=== PATIENT | female | born 1950 | race Caucasian/White ===

== ENCOUNTER 2022-05-07 18:47 | Inpatient (IN) | payer OTHER, SELFPAY ==
[2022-05-07 19:20] VITALS: BP 130/81; PULSE 100; RESP 18; TEMP 36.3; O2SAT 95
[2022-05-07] MEDS: Divalproex Sodium 250 MG TABLET.DR PO (19:40)
[2022-05-07] MEDS: OLANZapine 2.5 MG TABLET 7.5 MG PO (19:40)
[2022-05-07 19:41] LABS: Glucose, Whole Blood 262 mg/dL (60-115)
[2022-05-07 20:20] VITALS: BMI 36.3
[2022-05-07] MEDS: Heparin Sodium,Porcine 5,000 UNIT/ML VIAL 5000 UNIT SUBCUT (20:33)
--- NOTE | 2022-05-07 20:35 | PC.NURSE ---
PT POC 262, PT refusing insulin, notified.
[2022-05-07 21:54] LABS: Valproate 85.5 mcg/mL (50.0-100.0)
--- NOTE | 2022-05-07 22:34 | ECG_ITS ---
Test Reason : New Admit Blood Pressure : / mmHG Vent. Rate : 091 BPM Atrial Rate : 091 BPM P-R Int : 204 ms QRS Dur : 080 ms QT Int : 368 ms P-R-T Axes : 041 -24 040 degrees QTc Int : 452 ms Normal sinus rhythm Septal infarct (cited on or before 07-MAY-2022) Inferior infarct (cited on or before 07-MAY-2022) Abnormal ECG When compared with ECG of 07-MAY-2022 22:34, Questionable change in initial forces of Septal leads Referred By: Prateek Stanton Electronically Signed By:HILARIO PALMER MD
--- NOTE | 2022-05-07 22:56 | PC.NURSE ---
EKG results sent to MD Alex Rivas.
--- NOTE | 2022-05-07 23:28 | PC.ADMIT ---
PT is 71 year old female admitted on CV from [facility]. PT has hx of bipolar disorder presenting via EMS after she was noticed naked in her driveway throwing things, disorganized and mumbling incoherent speech. PT was evaluated by neurology at [facility] and symptoms were felt to be psychiatric in nature. PT has past medical Hx of diabetes mellitus, UTI, and HTN. PT is A+Ox4, calm and cooperative during admission interview. PT placed on 5 minute safety checks and is on a bed alarm. PT refused insulin at HS POC was 262, MD Alex Rivas notified. PT also refused Lyrica at bedtime, MD Alex Rivas notified. EKG done and results reported to . PT is currenty resting in bed with eyes closed. Tox screen was negative.
[2022-05-08 07:50] LABS: Glucose, Whole Blood 262 mg/dL (60-115)
[2022-05-08] MEDS: Insulin Lispro 100 UNIT/ML 3 ML VIAL SUBCUT ×4 (08:11→20:31)
[2022-05-08] MEDS: Insulin Glargine,Hum.rec.anlog 100 UNIT/ML 10 ML VIAL 60 UNIT SUBCUT (08:15)
[2022-05-08 08:21] VITALS: BP 119/82; PULSE 114; RESP 16; TEMP 36.2; O2SAT 96
[2022-05-08 08:40] LABS: Cholesterol 265 mg/dL; HDL Cholesterol 32 mg/dL; Magnesium 1.7 mg/dL (1.6-2.6); Triglycerides 560 mg/dL
[2022-05-08] MEDS: Divalproex Sodium 250 MG TABLET.DR PO (08:45)
[2022-05-08] MEDS: OLANZapine 2.5 MG TABLET PO ×2 (08:45→14:20)
[2022-05-08 08:46] LABS: Estimated Average Glucose 223 mg/dL; Hemoglobin A1c % 9.4 %
--- NOTE | 2022-05-08 09:00 | ECG_ITS ---
Test Reason : New Admit Blood Pressure : / mmHG Vent. Rate : 090 BPM Atrial Rate : 090 BPM P-R Int : 176 ms QRS Dur : 066 ms QT Int : 362 ms P-R-T Axes : 037 -21 040 degrees QTc Int : 442 ms Normal sinus rhythm Septal infarct , age undetermined Inferior infarct , age undetermined Abnormal ECG No previous ECGs available Referred By: Olga Trammell Electronically Signed By:HILARIO PALMER MD
[2022-05-08 09:08] LABS: Folate 6.4 ng/mL (> or = 4.0); Free T4 (Free Thyroxine) 0.84 ng/dL (0.71-1.85); Thyroid Stimulating Hormone 4.79 uIU/mL (0.32-4.0); Vitamin B12 789 pg/mL (200-900)
--- NOTE | 2022-05-08 10:30 | HO.PSYADMNOT ---
HPI Date of Service: 05/08/22 Chief Complaint: Bipolar D/O Current Episode Manic Sources of Information: patient interviewed, chart reviewed and crisis/core team assessment reviewed HPI Subjective Notes: Conditional Voluntary Healthcare Proxy: No Guardianship: No Medical Problems Affecting Mental Status: No Narrative: 71 yo female, history of bipolar disorder, HTN, and diabetes. Pt was found in her driveway throwing items. She was said to be disorganized, mumbling and incoherent, possibly manic. She was cleared neurologically prior to transfer. Blood glucose levels have a history of instability. She has infection L tooth which was fully treated with Augmentin, a UTI treated with Ceftriaxone, MANJIT which is resoloved with question of Stage II or III, resolved hyponatremia and urinary retention. 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 Diagnostics Vital Signs (24Hr): Vital Signs - 24 hr 05/07/22 19:20 05/08/22 08:21 Temperature 97.3 F 97.2 F Pulse Rate 100 114 H Respiratory Rate 18 16 Blood Pressure 130/81 119/82 Pulse Oximetry 95 96 Oxygen Delivery Method Room Air Room Air BMI result Body Mass Index 36.3 Labs Labs: Laboratory Results - last 48 hr 05/07/22 05/07/22 05/08/22 19:37 21:17 07:45 POC Glucose 262 H 262 H Estimat Average Glucose Hemoglobin A1c % Magnesium Triglycerides Cholesterol LDL Cholesterol, Calc HDL Cholesterol Vitamin B12 Folate TSH Free T4 Valproic Acid 85.5 05/08/22 05/08/22 08:02 08:02 POC Glucose Estimat Average Glucose 223 Hemoglobin A1c % 9.4 Magnesium 1.7 Triglycerides 560 Cholesterol 265 LDL Cholesterol, Calc TNP HDL Cholesterol 32 Vitamin B12 789 Folate 6.4 TSH 4.79 H Free T4 0.84 Valproic Acid Meds/Allergies Allergies Allergies Allergy/AdvReac Type Severity Reaction Status Date / Time No Known Allergies Allergy Verified 05/07/22 19:03 Mental Status Exam Mental Status Exam Patient Appearance: Fatigued Patient Orientation: Person and Place (hospital) Level of Consciousness: Alert Patient Behavior: Appropriate, Talkative, Cooperative and Good Eye Contact Mood Description: Calm Affect Description: Flat Patient Cognition Impaired: Yes Ability to Follow Directions: Fair Speech Pattern: Spontaneous Speech Memory Description: Remote Impaired and Episodic Impaired Hallucinations: None Delusions: Not Present Thought Process: Distracted Thought Content: positive for [place] Judgement: Poor Assessment & Plan Assessment & Plan (1) Bipolar disorder: Status: Acute Code(s): F31.9 - Bipolar disorder, unspecified Plan 71 yo female, history of bipolar disorder, HTN, DM found in her driveway disorganized, throwing items, incoherent and with labile blood sugar levels, a dental infection, UTI sx, MANJIT, urinary retention and hyponatremia. Pt presents in transfer for ongoing treatment after medically treated and cleared. Rule out possible luly AGRICULTURE INSPECTOR vs delirium due to multiple medical factors Plan: Continue Valproate and Olanzapine Collateral contact as needed Hold Heparin until seen by hospitalist team. Patient educated on: other Informed Consent: further education needed Reason for continued inpatient stay Substantial Risk for: med/psych decompensation Statement Statement: I have reviewed the history and physical and performed a pertinent examination on my patient. No changes have occurred unless specified. If the History and Physical was not performed prior to admission, the Hospitalist's service will be consulted for completing the admission physical. Time Spent With Patient Time: Total time managing care of this patient today ____ minutes.
[2022-05-08 11:25] LABS: Glucose, Whole Blood 315 mg/dL (60-115)
--- NOTE | 2022-05-08 15:30 | HO.PM.IMCN ---
History of Present Illness Data of Consult Service Date: 05/08/22 Primary Care Provider: Jerome Sierra MD HPI Reason for consult: Admission H&P Pt is a 71-year-old female with a PMH significant for?bipolar disorder, HTN, CKD, and diabetes who is admitted to [facility] after being found naked in her driveway throwing items. Patient was transferred from [facility] where she was treated for a tooth infection with Augmentin, UTI with ceftriaxone, MANJIT, hyponatremia, and urinary retention. Patient's glucose was apparently difficult to control. Medical consult for patient history and physical. Pt seen and evaluated in her room. Patient has no acute complaints at this time. Denies chest pain/pressure, palpitations. No SOB. Denies fever, chills, nausea, vomiting, diarrhea, abdominal pain. Labs reviewed, significant for a glucose as high as 315. Review of Systems Review of Systems: Patient has no acute complaints at this time. Yes all other systems are reviewed and are negative [facility] Medical History (Updated 05/08/22 @ 16:31 by AUDREY Munoz) Bipolar disorder Social History Household Members: None Housing: Condominium Do you presently have visiting nurse or other home services: No Unable to assess alcohol history related to: Unknown Patient Tobacco Use Status: Former Tobacco user Smoked in Last 30 Days: No e-Cigarette/Vaping Use: Never Used Patient Interested in Nicotine Replacement: No Use of substances other than those prescribed or required for medical reasons: No Last Used Substance: Unknown Currently Displaying Signs/Symptoms of Drug Intoxication Withdrawal: No Any prior treatment program specific to substance use: No Have you been hit, kicked, punched, or otherwise hurt by someone within the past year? If so, by whom?: No Do you feel safe in your current relationship?: No Current Relationship Is there a partner from a previous relationship who is making you feel unsafe now?: No Are you made to feel afraid or neglected: No Spiritual Healthcare Practices: NA Mandaeism Healthcare Practices: NA Cultural Healthcare Practices: NA Advance Directives: No Advance Directives Information Provided: No Do you have thoughts of harming others: None Do you have a plan to hurt others: No Plan Recently lost weight without trying: No Eating poorly because of decreased appetite: No Nutrition Risks: No Nutritional Risk Patient : No : No Poor oral hygiene: No Meds Allergies Allergy/AdvReac Type Severity Reaction Status Date / Time No Known Allergies Allergy Verified 05/07/22 19:03 Active Medications: Current Medications Acetaminophen (Acetaminophen 325 Mg Tablet) 650 mg PO Q6H PRN PRN Reason: Headache/Pain Mild Scale (1-3) Al Hydroxide/Mg Hydroxide (Magnesium Hydrox/Alum Hydrox 30 Ml Oral.Susp) 30 ml PO Q6H PRN PRN Reason: Heartburn/Nausea Divalproex Sodium (Divalproex Sodium 250 Mg Tablet.) 250 mg PO DAILY [facility] Last Admin: 05/08/22 08:45 Dose: 250 mg Divalproex Sodium (Divalproex Sodium 500 Mg Tablet.) 500 mg PO 1700,2100 [facility] Last Admin: 05/07/22 20:08 Dose: Not Given Glucose (Glucose Gel 15 Gm Gel..Gram.) 15 gm PO Q15M PRN; Protocol PRN Reason: per Hypoglycemia Standing Ord. Heparin Sodium (Porcine) (Heparin Sodium,Porcine 5,000 Unit/Ml Vial) 5,000 unit SUBCUT Q8H [facility] Last Admin: 05/08/22 10:49 Dose: Not Given Hydroxyzine HCl (Hydroxyzine Hcl 25 Mg Tablet) 25 mg PO Q6H PRN PRN Reason: Anxiety Dextrose (D10) 250 mls @ 750 mls/hr IV Q15M PRN; Protocol PRN Reason: per Hypoglycemia Standing Ord. Insulin Glargine (Insulin Glargine,Hum.Rec.Anlog 100 Unit/Ml 10 Ml Vial) 60 unit SUBCUT DAILY [facility] Last Admin: 05/08/22 08:15 Dose: 60 unit Insulin Human Lispro (Insulin Lispro 100 Unit/Ml 3 Ml Vial) 0 unit SUBCUT TIDAC [facility]; Protocol Last Admin: 05/08/22 12:04 Dose: 8 unit Magnesium Hydroxide (Milk Of Magnesia 30 Ml Oral.Susp) 30 ml PO DAILY PRN PRN Reason: Constipation Melatonin (Melatonin 3 Mg Tablet) 3 mg PO BEDTIME PRN PRN Reason: Insomnia Olanzapine (Olanzapine 2.5 Mg Tablet) 7.5 mg PO BEDTIME [facility] Last Admin: 05/07/22 19:40 Dose: 7.5 mg Olanzapine (Olanzapine 2.5 Mg Tablet) 2.5 mg PO Q6H PRN PRN Reason: agitation Olanzapine (Olanzapine 2.5 Mg Tablet) 2.5 mg PO 0900,1500 [facility] Last Admin: 05/08/22 14:20 Dose: 2.5 mg Pregabalin (Pregabalin 75 Mg Capsule) 75 mg PO BEDTIME [facility] Last Admin: 05/07/22 21:33 Dose: Not Given Physical Exam Vital Signs and Narrative: Vital Signs: Last Vital Signs Temp 97.2 F 05/08/22 08:21 Pulse 114 H 05/08/22 08:21 Resp 16 05/08/22 08:21 BP 119/82 05/08/22 08:21 Pulse Ox 96 05/08/22 08:21 O2 Del Method Room Air 05/08/22 08:21 BMI result Body Mass Index 36.3 General: AOx3, no acute distress Resp: CTA bilaterally CVS: S1, S2, RRR GI: +BS, NT, no distention Skin: No rash Neuro: Cranial nerves II-XII grossly intact bilaterally. Motor grossly intact bilaterally Extremities: No edema Psych: Appropriate affect Results Labs Labs: Laboratory Results - last 24 hr 05/07/22 05/07/22 05/08/22 19:37 21:17 07:45 POC Glucose 262 H 262 H Estimat Average Glucose Hemoglobin A1c % Magnesium Triglycerides Cholesterol LDL Cholesterol, Calc HDL Cholesterol Vitamin B12 Folate TSH Free T4 Valproic Acid 85.5 05/08/22 05/08/22 05/08/22 08:02 08:02 11:19 POC Glucose 315 H Estimat Average Glucose 223 Hemoglobin A1c % 9.4 Magnesium 1.7 Triglycerides 560 Cholesterol 265 LDL Cholesterol, Calc TNP HDL Cholesterol 32 Vitamin B12 789 Folate 6.4 TSH 4.79 H Free T4 0.84 Valproic Acid Assessment and Plan (1) Routine history and physical examination of adult: Status: Acute Plan Pt is a 71-year-old female with a PMH significant for?bipolar disorder, HTN, CKD, and diabetes who is admitted to [facility] after being found naked in her driveway throwing items. Patient was transferred from [facility] where she was treated for a tooth infection with Augmentin, UTI with ceftriaxone, MANJIT, hyponatremia, and urinary retention. Patient's glucose was apparently difficult to control. Medical consult for patient history and physical. Patient has no acute complaints at this time. Bipolar disorder Plan as per Psychiatry CKD Seems stable at time of transfer from [facility] Creatinine 1.4 Encourage p.o. fluids Insulin-dependent diabetes Continue Lantus, sliding scale for glucose control HTN Continue home meds Thank you for allowing us to participate in the care of this patient. Sign of this time. Please let us know if there are any acute concerns or questions. Time Spent With Patient Time: Total time managing care of this patient today ____ minutes.
[2022-05-08] MEDS: Heparin Sodium,Porcine 5,000 UNIT/ML VIAL 5000 UNIT SUBCUT (16:26)
[2022-05-08] MEDS: Divalproex Sodium 500 MG TABLET.DR PO ×2 (16:27→20:36)
--- NOTE | 2022-05-08 16:30 | PC.NURSE ---
Pt. with good balance, steady gait, and good safety awareness. Bed alarm not needed.
[2022-05-08 18:00] VITALS: BP 109/64; PULSE 107; RESP 16; TEMP 35.8; O2SAT 95
[2022-05-08 20:06] LABS: Glucose, Whole Blood 331 mg/dL (60-115)
[2022-05-08 20:06] LABS: Glucose, Whole Blood 322 mg/dL (60-115)
[2022-05-08] MEDS: OLANZapine 2.5 MG TABLET 7.5 MG PO (20:31)
[2022-05-08] MEDS: Pregabalin 75 MG CAPSULE PO (20:31)
[2022-05-09 07:30] VITALS: BP 126/74; PULSE 107; RESP 15; TEMP 36.7; O2SAT 98
[2022-05-09 07:56] LABS: Glucose, Whole Blood 273 mg/dL (60-115)
[2022-05-09] MEDS: Divalproex Sodium 250 MG TABLET.DR PO (09:07)
[2022-05-09] MEDS: Insulin Glargine,Hum.rec.anlog 100 UNIT/ML 10 ML VIAL 60 UNIT SUBCUT (09:07)
[2022-05-09] MEDS: OLANZapine 2.5 MG TABLET PO ×2 (09:07→17:07)
[2022-05-09] MEDS: Insulin Lispro 100 UNIT/ML 3 ML VIAL SUBCUT ×4 (09:09→21:28)
[2022-05-09] MEDS: Heparin Sodium,Porcine 5,000 UNIT/ML VIAL 5000 UNIT SUBCUT ×2 (09:10→17:07)
--- NOTE | 2022-05-09 11:14 | P.PNPSI_ITS ---
Subjective Subjective Date of Service: 05/09/22 Reason For Visit: Bipolar D/O Current Episode Manic Interim History: POC change to QID. Cooperative, calm and interactive. Reports she finds that some napping during the day is more helpful to allowing her to fully participate in the activity. She comments that she finds it beautiful here and has met several wonderful people. Denies sx of concern or distress today. Medication Compliance: Yes Side effects from medications: No Attending Groups: Intermittent Review of Systems Acute medical concerns: No Medical Review of Systems: unchanged Mental Status Exam Mental Status Exam Patient Appearance: Fatigued Patient Orientation: Person and Place (hospital) Level of Consciousness: Alert Patient Behavior: Appropriate, Talkative, Cooperative and Good Eye Contact Mood Description: Calm Affect Description: Flat Patient Cognition Impaired: Yes Ability to Follow Directions: Fair Speech Pattern: Spontaneous Speech Memory Description: Remote Impaired and Episodic Impaired Hallucinations: None Delusions: Not Present Thought Process: Distracted Thought Content: positive for [place] Judgement: Poor Diagnostics Vital Signs (24Hr): Vital Signs - 24 hr 05/08/22 18:00 05/09/22 07:30 Temperature 96.4 F L 98.1 F Pulse Rate 107 H 107 H Respiratory Rate 16 15 Blood Pressure 109/64 126/74 Pulse Oximetry 95 98 Oxygen Delivery Method Room Air Room Air BMI result Body Mass Index 36.3 Labs Labs: Laboratory Results - last 48 hr 05/07/22 05/07/22 05/08/22 19:37 21:17 07:45 POC Glucose 262 H 262 H Estimat Average Glucose Hemoglobin A1c % Magnesium Triglycerides Cholesterol LDL Cholesterol, Calc HDL Cholesterol Vitamin B12 Folate TSH Free T4 Valproic Acid 85.5 05/08/22 05/08/22 05/08/22 08:02 08:02 11:19 POC Glucose 315 H Estimat Average Glucose 223 Hemoglobin A1c % 9.4 Magnesium 1.7 Triglycerides 560 Cholesterol 265 LDL Cholesterol, Calc TNP HDL Cholesterol 32 Vitamin B12 789 Folate 6.4 TSH 4.79 H Free T4 0.84 Valproic Acid 05/08/22 05/08/22 05/09/22 16:14 20:00 07:52 POC Glucose 322 H 331 H 273 H Estimat Average Glucose Hemoglobin A1c % Magnesium Triglycerides Cholesterol LDL Cholesterol, Calc HDL Cholesterol Vitamin B12 Folate TSH Free T4 Valproic Acid Medications Medications Current Medications Acetaminophen (Acetaminophen 325 Mg Tablet) 650 mg PO Q6H PRN PRN Reason: Headache/Pain Mild Scale (1-3) Al Hydroxide/Mg Hydroxide (Magnesium Hydrox/Alum Hydrox 30 Ml Oral.Susp) 30 ml PO Q6H PRN PRN Reason: Heartburn/Nausea Divalproex Sodium (Divalproex Sodium 250 Mg Tablet.Dr) 250 mg PO DAILY [facility] Last Admin: 05/09/22 09:07 Dose: 250 mg Divalproex Sodium (Divalproex Sodium 500 Mg Tablet.) 500 mg PO 1700,2100 [facility] Last Admin: 05/08/22 20:36 Dose: 500 mg Glucose (Glucose Gel 15 Gm Gel..Gram.) 15 gm PO Q15M PRN; Protocol PRN Reason: per Hypoglycemia Standing Ord. Heparin Sodium (Porcine) (Heparin Sodium,Porcine 5,000 Unit/Ml Vial) 5,000 unit SUBCUT Q8H [facility] Last Admin: 05/09/22 09:11 Dose: Not Given Hydroxyzine HCl (Hydroxyzine Hcl 25 Mg Tablet) 25 mg PO Q6H PRN PRN Reason: Anxiety Dextrose (D10) 250 mls @ 750 mls/hr IV Q15M PRN; Protocol PRN Reason: per Hypoglycemia Standing Ord. Insulin Glargine (Insulin Glargine,Hum.Rec.Anlog 100 Unit/Ml 10 Ml Vial) 60 unit SUBCUT DAILY [facility] Last Admin: 05/09/22 09:07 Dose: 60 unit Insulin Human Lispro (Insulin Lispro 100 Unit/Ml 3 Ml Vial) 0 unit SUBCUT QIDACHS [facility]; Protocol Last Admin: 05/09/22 09:09 Dose: 6 unit Magnesium Hydroxide (Milk Of Magnesia 30 Ml Oral.Susp) 30 ml PO DAILY PRN PRN Reason: Constipation Melatonin (Melatonin 3 Mg Tablet) 3 mg PO BEDTIME PRN PRN Reason: Insomnia Olanzapine (Olanzapine 2.5 Mg Tablet) 7.5 mg PO BEDTIME [facility] Last Admin: 05/08/22 20:31 Dose: 7.5 mg Olanzapine (Olanzapine 2.5 Mg Tablet) 2.5 mg PO Q6H PRN PRN Reason: agitation Olanzapine (Olanzapine 2.5 Mg Tablet) 2.5 mg PO 0900,1500 [facility] Last Admin: 05/09/22 09:07 Dose: 2.5 mg Pregabalin (Pregabalin 75 Mg Capsule) 75 mg PO BEDTIME [facility] Last Admin: 03/25/23 20:31 Dose: 75 mg Allergies Allergies Allergy/AdvReac Type Severity Reaction Status Date / Time No Known Allergies Allergy Verified 05/07/22 19:03 Assessment & Plan Assessment & Plan (1) Routine history and physical examination of adult: Status: Acute Code(s): Z00.00 - Encounter for general adult medical examination without abnormal findings (2) Bipolar disorder: Status: Acute Code(s): F31.9 - Bipolar disorder, unspecified Assessment and Plan: 05/09/22- CBCD, CMP, PT/INR 05/10 Valproate Level Continue current regime Plan Pt is a 71-year-old female with a PMH significant for?bipolar disorder, HTN, CKD, and diabetes who is admitted to [facility] after being found naked in her driveway throwing items. Patient was transferred from [facility] where she was treated for a tooth infection with Augmentin, UTI with ceftriaxone, MANJIT, hyponatremia, and urinary retention. Patient's glucose was apparently difficult to control. Medical consult for patient history and physical. Patient has no acute complaints at this time. Bipolar disorder Plan as per Psychiatry CKD Seems stable at time of transfer from [facility] Creatinine 1.4 Encourage p.o. fluids Insulin-dependent diabetes Continue Lantus, sliding scale for glucose control HTN Continue home meds Thank you for allowing us to participate in the care of this patient. Sign of this time. Please let us know if there are any acute concerns or questions. Informed Consent: further education needed Reason for contiued inpatient stay Substantial Risk for: med/psych decompensation Time Spent With Patient Time: Total time managing care of this patient today ____ minutes.
[2022-05-09 11:34] LABS: Glucose, Whole Blood 267 mg/dL (60-115)
[2022-05-09 16:44] LABS: Glucose, Whole Blood 280 mg/dL (60-115)
[2022-05-09] MEDS: Divalproex Sodium 500 MG TABLET.DR PO ×2 (17:10→20:44)
[2022-05-09 18:00] VITALS: BP 118/58; PULSE 93; RESP 18; TEMP 36.4; O2SAT 93
[2022-05-09] MEDS: OLANZapine 2.5 MG TABLET 7.5 MG PO (20:44)
[2022-05-09] MEDS: Pregabalin 75 MG CAPSULE PO (20:45)
[2022-05-09] MEDS: Magnesium Hydrox/Alum Hydrox 30 ML ORAL.SUSP PO (20:46)
[2022-05-09 21:22] LABS: Glucose, Whole Blood 328 mg/dL (60-115)
[2022-05-10] MEDS: Heparin Sodium,Porcine 5,000 UNIT/ML VIAL 5000 UNIT SUBCUT ×3 (05:13→20:51)
[2022-05-10 07:30] VITALS: BP 124/56; PULSE 85; RESP 15; TEMP 36.2; O2SAT 93
[2022-05-10 07:51] LABS: Glucose, Whole Blood 274 mg/dL (60-115)
[2022-05-10 08:03] LABS: MANUAL DIFF FLAG NO
[2022-05-10 08:05] LABS: Basophils Absolute Auto 0.1 X10*3/uL (0.0-0.2); Basophils Percent Auto 0.8 % (0-2); Eosinophils Absolute Auto 0.2 X10*3/uL (0.0-0.4); Eosinophils Percent Auto 2.3 % (0-4); Hematocrit 43.5 % (37.0-47.0); Hemoglobin 14.1 g/dl (12.0-16.0); Imm Gran Pct Auto 3.9 % (0.0-0.4); Mean Corpuscular HGB Conc 32.4 g/dl (31.0-35.0); Mean Corpuscular Volume 89.5 fL (80.0-98.0); Mean Platelet Volume 9.6 fL (9.4-12.3); Monocytes Absolute Auto 0.9 X10*3/uL (0.1-1.2); Monocytes Percent Auto 11.2 % (2-11); Neutrophils Absolute Auto 3.3 x10*3/uL (2.0-8.3); Neutrophils Percent Auto 42.8 % (45-73); Platelet Count 187 X10*3/uL (160-400); Red Blood Count 4.86 X10*6/uL (4.20-5.50); Red Cell Distribution Width 14.2 % (11.0-16.0); White Blood Count 7.7 X10*3/uL (4.8-10.8)
[2022-05-10 08:15] LABS: INTERNATIONAL NORM RATIO 0.8 (0.9-1.1); Prothrombin Time 9.6 SEC (10.0-13.1)
[2022-05-10 08:47] LABS: Alanine Aminotransferase 20 U/L (0-31); Albumin Level 3.5 g/dL (3.5-5.0); Alkaline Phosphatase 79 U/L (39-117); Anion Gap 15 (12-20); Aspartate Amino Transferase 16 U/L (5-31); Bilirubin Total 0.4 mg/dL (0.0-1.0); Blood Urea Nitrogen 34 mg/dL (9-16); Calcium 9.8 mg/dL (8.4-10.2); Carbon Dioxide 27 mmol/L (22-29); Chloride 102 mmol/L (96-108); Creatinine Clr Calc Pharmacy 40.1; Estimated Glomerular Filt Rate 29; Glucose Random 273 mg/dL (60-115); Potassium 4.4 mmol/L (3.3-5.1); Sodium 140 mmol/L (135-145); Total Protein 6.2 g/dL (6.5-8.0)
[2022-05-10 09:06] LABS: Valproate 85.6 mcg/mL (50.0-100.0)
[2022-05-10] MEDS: Insulin Glargine,Hum.rec.anlog 100 UNIT/ML 10 ML VIAL 60 UNIT SUBCUT (10:31)
[2022-05-10] MEDS: Insulin Lispro 100 UNIT/ML 3 ML VIAL SUBCUT ×4 (10:31→21:10)
[2022-05-10] MEDS: OLANZapine 2.5 MG TABLET PO ×2 (10:32→14:05)
[2022-05-10] MEDS: Divalproex Sodium 250 MG TABLET.DR PO (10:32)
[2022-05-10 11:38] LABS: Glucose, Whole Blood 265 mg/dL (60-115)
--- NOTE | 2022-05-10 12:49 | P.PNPSI_ITS ---
Subjective Subjective Date of Service: 05/10/22 Reason For Visit: Bipolar D/O Current Episode Manic Interim History: The nursing staff reported the patient slept until 03:00 o'clock in the morning, her point of care was slightly high over 200. Her PT INR was 0.8 but she is on heparin at this moment. On interview the patient was confused at times but easily redirectable. Denies new side effects, I explained that she could have been delirious when she was agitated at her place. VALP on therapeutic range. Mental Status Exam Mental Status Exam Patient Appearance: Appropriate Patient Orientation: Person and Situation Level of Consciousness: Awake and Appropriate Patient Behavior: Guarded and Passive Mood Description: Withdrawn and Constricted Affect Description: Blunted Patient Cognition Impaired: Yes Ability to Follow Directions: Good Speech Pattern: Clear and Appropriate Hallucinations: None Delusions: Paranoid Ideation Thought Process: Distracted Thought Content: positive for [place] and positive for Poverty of Content Judgement: Fair Diagnostics Vital Signs (24Hr): Vital Signs - 24 hr 05/09/22 18:00 Temperature 97.5 F Pulse Rate 93 Respiratory Rate 18 Blood Pressure 118/58 L Pulse Oximetry 93 Oxygen Delivery Method Room Air BMI result Body Mass Index 36.3 Labs 05/10/22 07:40 05/10/22 07:40 Labs: Laboratory Results - last 48 hr 05/08/22 05/08/22 05/09/22 16:14 20:00 07:52 WBC RBC Hgb Hct MCV MCH MCHC RDW Plt Count MPV Immature Gran % (Auto) Neut % (Auto) Lymph % (Auto) [place] % (Auto) Eos % (Auto) Baso % (Auto) Lymph # (Auto) [place] # (Auto) Eos # (Auto) Baso # (Auto) Abs Immat Gran (auto) Absolute Neuts (auto) Absolute Nucleated RBC Nucleated RBC % (auto) PT INR Sodium Potassium Chloride Carbon Dioxide Anion Gap BUN Creatinine Estim Creat Clear Calc Estimated GFR POC Glucose 322 H 331 H 273 H Random Glucose Calcium Total Bilirubin AST ALT Alkaline Phosphatase Total Protein Albumin Valproic Acid 05/09/22 05/09/22 05/09/22 11:26 16:31 20:39 WBC RBC Hgb Hct MCV MCH MCHC RDW Plt Count MPV Immature Gran % (Auto) Neut % (Auto) Lymph % (Auto) [place] % (Auto) Eos % (Auto) Baso % (Auto) Lymph # (Auto) [place] # (Auto) Eos # (Auto) Baso # (Auto) Abs Immat Gran (auto) Absolute Neuts (auto) Absolute Nucleated RBC Nucleated RBC % (auto) PT INR Sodium Potassium Chloride Carbon Dioxide Anion Gap BUN Creatinine Estim Creat Clear Calc Estimated GFR POC Glucose 267 H 280 H 328 H Random Glucose Calcium Total Bilirubin AST ALT Alkaline Phosphatase Total Protein Albumin Valproic Acid 05/10/22 05/10/22 05/10/22 07:40 07:40 07:40 WBC 7.7 RBC 4.86 Hgb 14.1 Hct 43.5 MCV 89.5 MCH 29.0 MCHC 32.4 RDW 14.2 Plt Count 187 MPV 9.6 Immature Gran % (Auto) 3.9 H Neut % (Auto) 42.8 L Lymph % (Auto) 39.0 [place] % (Auto) 11.2 H Eos % (Auto) 2.3 Baso % (Auto) 0.8 Lymph # (Auto) 3.0 [place] # (Auto) 0.9 Eos # (Auto) 0.2 Baso # (Auto) 0.1 Abs Immat Gran (auto) 0.30 H Absolute Neuts (auto) 3.3 Absolute Nucleated RBC 0.000 Nucleated RBC % (auto) 0.0 PT 9.6 L INR 0.8 L Sodium 140 Potassium 4.4 Chloride 102 Carbon Dioxide 27 Anion Gap 15 BUN 34 H Creatinine 1.76 H Estim Creat Clear Calc 40.1 Estimated GFR 29 POC Glucose Random Glucose 273 H Calcium 9.8 Total Bilirubin 0.4 AST 16 ALT 20 Alkaline Phosphatase 79 Total Protein 6.2 L Albumin 3.5 Valproic Acid 05/10/22 05/10/22 05/10/22 07:40 07:47 11:35 WBC RBC Hgb Hct MCV MCH MCHC RDW Plt Count MPV Immature Gran % (Auto) Neut % (Auto) Lymph % (Auto) [place] % (Auto) Eos % (Auto) Baso % (Auto) Lymph # (Auto) [place] # (Auto) Eos # (Auto) Baso # (Auto) Abs Immat Gran (auto) Absolute Neuts (auto) Absolute Nucleated RBC Nucleated RBC % (auto) PT INR Sodium Potassium Chloride Carbon Dioxide Anion Gap BUN Creatinine Estim Creat Clear Calc Estimated GFR POC Glucose 274 H 265 H Random Glucose Calcium Total Bilirubin AST ALT Alkaline Phosphatase Total Protein Albumin Valproic Acid 85.6 Medications Medications Current Medications Acetaminophen (Acetaminophen 325 Mg Tablet) 650 mg PO Q6H PRN PRN Reason: Headache/Pain Mild Scale (1-3) Al Hydroxide/Mg Hydroxide (Magnesium Hydrox/Alum Hydrox 30 Ml Oral.Susp) 30 ml PO Q6H PRN PRN Reason: Heartburn/Nausea Last Admin: 05/09/22 20:46 Dose: 30 ml Divalproex Sodium (Divalproex Sodium 250 Mg Tablet.) 250 mg PO DAILY [facility] Last Admin: 05/10/22 10:32 Dose: 250 mg Divalproex Sodium (Divalproex Sodium 500 Mg Tablet.) 500 mg PO 1700,2100 [facility] Glucose (Glucose Gel 15 Gm Gel..Gram.) 15 gm PO Q15M PRN; Protocol PRN Reason: per Hypoglycemia Standing Ord. Heparin Sodium (Porcine) (Heparin Sodium,Porcine 5,000 Unit/Ml Vial) 5,000 unit SUBCUT 0600,1400,2200 [facility] Last Admin: 05/10/22 05:13 Dose: 5,000 unit Hydroxyzine HCl (Hydroxyzine Hcl 25 Mg Tablet) 25 mg PO Q6H PRN PRN Reason: Anxiety Dextrose (D10) 250 mls @ 750 mls/hr IV Q15M PRN; Protocol PRN Reason: per Hypoglycemia Standing Ord. Insulin Glargine (Insulin Glargine,Hum.Rec.Anlog 100 Unit/Ml 10 Ml Vial) 60 unit SUBCUT DAILY [facility] Last Admin: 05/10/22 10:31 Dose: 60 unit Insulin Human Lispro (Insulin Lispro 100 Unit/Ml 3 Ml Vial) 0 unit SUBCUT Q IDACHS [facility]; Protocol Last Admin: 05/10/22 12:13 Dose: 6 unit Magnesium Hydroxide (Milk Of Magnesia 30 Ml Oral.Susp) 30 ml PO DAILY PRN PRN Reason: Constipation Melatonin (Melatonin 3 Mg Tablet) 3 mg PO BEDTIME PRN PRN Reason: Insomnia Olanzapine (Olanzapine 2.5 Mg Tablet) 7.5 mg PO BEDTIME [facility] Last Admin: 05/09/22 20:44 Dose: 7.5 mg Olanzapine (Olanzapine 2.5 Mg Tablet) 2.5 mg PO Q6H PRN PRN Reason: agitation Olanzapine (Olanzapine 2.5 Mg Tablet) 2.5 mg PO 0900,1500 [facility] Last Admin: 05/10/22 10:32 Dose: 2.5 mg Pregabalin (Pregabalin 75 Mg Capsule) 75 mg PO BEDTIME [facility] Last Admin: 05/09/22 20:45 Dose: 75 mg Allergies Allergies Allergy/AdvReac Type Severity Reaction Status Date / Time No Known Allergies Allergy Verified 05/07/22 19:03 Assessment & Plan Assessment & Plan (1) Routine history and physical examination of adult: Status: Acute Code(s): Z00.00 - Encounter for general adult medical examination without abnormal findings (2) Bipolar disorder: Status: Acute Code(s): F31.9 - Bipolar disorder, unspecified Assessment and Plan: 05/09/22- CBCD, CMP, PT/INR 05/10 Valproate Level Continue current regime Plan Pt is a 71-year-old female with a PMH significant for?bipolar disorder, HTN, CKD, and diabetes who is admitted to [facility] after being found naked in her driveway throwing items. Patient was transferred from [facility] where she was treated for a tooth infection with Augmentin, UTI with ceftriaxone, MANJIT, hyponatremia, and urinary retention. Patient's glucose was apparently difficult to control. Medical consult for patient history and physical. Patient has no acute complaints at this time. Plan 1. Gather collateral information. 2. Continue Depakote since she is on a therapeutic dose. 3. Rule out delirium. 4. Discussed other treatment options such as antipsychotics Reason for contiued inpatient stay Substantial Risk for: inability to function, rapid decompensation and med/psych decompensation Time Spent With Patient Time: Total time managing care of this patient today __20__ minutes.
[2022-05-10 16:32] LABS: Glucose, Whole Blood 196 mg/dL (60-115)
[2022-05-10] MEDS: Divalproex Sodium 500 MG TABLET.DR PO ×2 (17:03→22:23)
[2022-05-10 18:00] VITALS: BP 107/68; PULSE 88; RESP 18; TEMP 36.1; O2SAT 94
[2022-05-10] MEDS: OLANZapine 2.5 MG TABLET 7.5 MG PO (20:50)
[2022-05-10 21:06] LABS: Glucose, Whole Blood 305 mg/dL (60-115)
[2022-05-10] MEDS: Pregabalin 75 MG CAPSULE PO (21:09)
[2022-05-11] MEDS: Heparin Sodium,Porcine 5,000 UNIT/ML VIAL 5000 UNIT SUBCUT ×3 (06:14→21:15)
[2022-05-11 08:00] VITALS: BP 122/82; PULSE 108; RESP 18; TEMP 36.7; O2SAT 97
[2022-05-11 08:09] LABS: Glucose, Whole Blood 206 mg/dL (60-115)
[2022-05-11] MEDS: Insulin Lispro 100 UNIT/ML 3 ML VIAL SUBCUT ×4 (08:24→21:12)
[2022-05-11] MEDS: Insulin Glargine,Hum.rec.anlog 100 UNIT/ML 10 ML VIAL 60 UNIT SUBCUT (08:25)
[2022-05-11] MEDS: Divalproex Sodium 250 MG TABLET.DR PO (08:28)
[2022-05-11] MEDS: OLANZapine 2.5 MG TABLET PO ×2 (08:28→14:55)
[2022-05-11 11:39] LABS: Glucose, Whole Blood 301 mg/dL (60-115)
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
[2022-05-11 16:28] LABS: Glucose, Whole Blood 261 mg/dL (60-115)
[2022-05-11] MEDS: Divalproex Sodium 500 MG TABLET.DR PO ×2 (16:34→20:33)
[2022-05-11 18:00] VITALS: BP 108/57; PULSE 92; RESP 18; TEMP 36.3; O2SAT 94
[2022-05-11 19:19] LABS: Glucose, Whole Blood 186 mg/dL (60-115)
[2022-05-11] MEDS: OLANZapine 2.5 MG TABLET 7.5 MG PO (20:34)
[2022-05-11] MEDS: Pregabalin 75 MG CAPSULE PO (20:34)
[2022-05-11 21:08] LABS: Glucose, Whole Blood 221 mg/dL (60-115)
[2022-05-12] MEDS: Heparin Sodium,Porcine 5,000 UNIT/ML VIAL 5000 UNIT SUBCUT (05:12)
[2022-05-12 07:45] LABS: Glucose, Whole Blood 175 mg/dL (60-115)
[2022-05-12] MEDS: Divalproex Sodium 250 MG TABLET.DR PO (08:05)
[2022-05-12] MEDS: OLANZapine 2.5 MG TABLET PO ×2 (08:05→15:24)
[2022-05-12] MEDS: Insulin Lispro 100 UNIT/ML 3 ML VIAL SUBCUT ×4 (08:06→20:16)
[2022-05-12] MEDS: Insulin Glargine,Hum.rec.anlog 100 UNIT/ML 10 ML VIAL 60 UNIT SUBCUT (08:06)
[2022-05-12 08:10] VITALS: BP 123/70; PULSE 96; RESP 15; TEMP 36.2; O2SAT 96
[2022-05-12 11:20] LABS: Glucose, Whole Blood 359 mg/dL (60-115)
--- NOTE | 2022-05-12 11:36 | PC.NURSE ---
Lunch Blood sugar 359. 10 units given per protocol. MD dhillon aware.
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
[2022-05-12 16:27] LABS: Glucose, Whole Blood 229 mg/dL (60-115)
[2022-05-12] MEDS: Divalproex Sodium 500 MG TABLET.DR PO ×2 (17:57→20:16)
[2022-05-12 18:00] VITALS: BP 134/70; PULSE 89; RESP 18; TEMP 36.8; O2SAT 96
[2022-05-12 19:57] LABS: Glucose, Whole Blood 236 mg/dL (60-115)
[2022-05-12] MEDS: Pregabalin 75 MG CAPSULE PO (20:16)
[2022-05-12] MEDS: OLANZapine 2.5 MG TABLET 7.5 MG PO (20:16)
[2022-05-13 07:30] VITALS: BP 106/55; PULSE 79; RESP 16; TEMP 36.3; O2SAT 95
[2022-05-13 07:54] LABS: Glucose, Whole Blood 204 mg/dL (60-115)
[2022-05-13] MEDS: Insulin Glargine,Hum.rec.anlog 100 UNIT/ML 10 ML VIAL 60 UNIT SUBCUT (10:18)
[2022-05-13] MEDS: Enoxaparin Sodium 30 MG/0.3 ML SYRINGE SUBCUT (10:18)
[2022-05-13] MEDS: Insulin Lispro 100 UNIT/ML 3 ML VIAL SUBCUT ×4 (10:19→20:47)
[2022-05-13] MEDS: Divalproex Sodium 250 MG TABLET.DR PO (10:20)
[2022-05-13] MEDS: OLANZapine 2.5 MG TABLET PO (10:20)
[2022-05-13 11:39] LABS: Glucose, Whole Blood 275 mg/dL (60-115)
--- NOTE | 2022-05-13 13:41 | HO.PSYCHPN ---
Subjective Subjective Date of Service: 05/13/22 Reason For Visit: Bipolar D/O Current Episode Manic Subjective Notes: Conditional Voluntary Interim History: The nursing staff reported the patient had been common cooperative she was being more visible in the unit, she slept well last night and compliant with medications. The social media sr strategy manager reported that her sister wants more Elder Services in the community. On interview the patient denies new symptoms she is scheduled to be discharged next Tuesday. Mental Status Exam Mental Status Exam Patient Appearance: Appropriate Patient Orientation: Person and Situation Level of Consciousness: Awake and Appropriate Patient Behavior: Guarded and Passive Mood Description: Withdrawn Affect Description: Calm Patient Cognition Impaired: Yes Ability to Follow Directions: Good Speech Pattern: Clear and Monotone Hallucinations: None Delusions: Paranoid Ideation Thought Process: Distracted and Slowed Thinking Thought Content: positive for [place] and positive for Circumstantial Judgement: Fair Diagnostics Vital Signs (24Hr): Vital Signs - 24 hr 05/12/22 18:00 05/13/22 07:30 Temperature 98.3 F 97.4 F Pulse Rate 89 79 Respiratory Rate 18 16 Blood Pressure 134/70 106/55 L Pulse Oximetry 96 95 Oxygen Delivery Method Room Air Room Air BMI result Body Mass Index 36.3 Labs 05/10/22 07:40 05/10/22 07:40 Labs: Laboratory Results - last 48 hr 05/11/22 05/11/22 05/11/22 16:21 19:15 21:02 POC Glucose 261 H 186 H 221 H 05/12/22 05/12/22 05/12/22 07:41 11:15 16:11 POC Glucose 175 H 359 H* 229 H 05/12/22 05/13/22 05/13/22 19:50 07:43 11:32 POC Glucose 236 H 204 H 275 H Medications Medications Current Medications Acetaminophen (Acetaminophen 325 Mg Tablet) 650 mg PO Q6H PRN PRN Reason: Headache/Pain Mild Scale (1-3) Al Hydroxide/Mg Hydroxide (Magnesium Hydrox/Alum Hydrox 30 Ml Oral.Susp) 30 ml PO Q6H PRN PRN Reason: Heartburn/Nausea Last Admin: 05/09/22 20:46 Dose: 30 ml Divalproex Sodium (Divalproex Sodium 250 Mg Tablet.Dr) 250 mg PO DAILY DMITRI Last Admin: 05/13/22 10:20 Dose: 250 mg Divalproex Sodium (Divalproex Sodium 500 Mg Tablet.Dr) 500 mg PO 1700,2100 [facility] Last Admin: 05/12/22 20:16 Dose: 500 mg Enoxaparin Sodium (Enoxaparin Sodium 30 Mg/0.3 Ml Syringe) 30 mg SUBCUT Q24H [facility] Last Admin: 05/13/22 10:18 Dose: 30 mg Glucose (Glucose Gel 15 Gm Gel..Gram.) 15 gm PO Q15M PRN; Protocol PRN Reason: per Hypoglycemia Standing Ord. Hydroxyzine HCl (Hydroxyzine Hcl 25 Mg Tablet) 25 mg PO Q6H PRN PRN Reason: Anxiety Dextrose (D10) 250 mls @ 750 mls/hr IV Q15M PRN; Protocol PRN Reason: per Hypoglycemia Standing Ord. Insulin Glargine (Insulin Glargine,Hum.Rec.Anlog 100 Unit/Ml 10 Ml Vial) 60 unit SUBCUT DAILY [facility] Last Admin: 05/13/22 10:18 Dose: 60 unit Insulin Human Lispro (Insulin Lispro 100 Unit/Ml 3 Ml Vial) 0 unit SUBCUT QIDACHS [facility]; Protocol Last Admin: 05/13/22 11:42 Dose: 6 unit Magnesium Hydroxide (Milk Of Magnesia 30 Ml Oral.Susp) 30 ml PO DAILY PRN PRN Reason: Constipation Melatonin (Melatonin 3 Mg Tablet) 3 mg PO BEDTIME PRN PRN Reason: Insomnia Olanzapine (Olanzapine 2.5 Mg Tablet) 7.5 mg PO BEDTIME [facility] Last Admin: 05/12/22 20:16 Dose: 7.5 mg Olanzapine (Olanzapine 2.5 Mg Tablet) 2.5 mg PO Q6H PRN PRN Reason: agitation Olanzapine (Olanzapine 2.5 Mg Tablet) 2.5 mg PO 0900,1500 [facility] Last Admin: 05/13/22 10:20 Dose: 2.5 mg Pregabalin (Pregabalin 75 Mg Capsule) 75 mg PO BEDTIME [facility] Last Admin: 05/12/22 20:16 Dose: 75 mg Allergies Allergies Allergy/AdvReac Type Severity Reaction Status Date / Time No Known Allergies Allergy Verified 05/07/22 19:03 Assessment & Plan Assessment & Plan (1) Routine history and physical examination of adult: Status: Acute Code(s): Z00.00 - Encounter for general adult medical examination without abnormal findings (2) Bipolar disorder: Status: Acute Code(s): F31.9 - Bipolar disorder, unspecified Assessment and Plan: 05/09/22- CBCD, CMP, PT/INR 05/10 Valproate Level Continue current regime Plan Pt is a 71-year-old female with a PMH significant for?bipolar disorder, HTN, CKD, and diabetes who is admitted to [facility] after being found naked in her driveway throwing items. Patient was transferred from [facility] where she was treated for a tooth infection with Augmentin, UTI with ceftriaxone, MANJIT, hyponatremia, and urinary retention. Patient's glucose was apparently difficult to control. Medical consult for patient history and physical. Patient has no acute complaints at this time. Plan 1. Gather collateral information. 2. Continue Depakote since she is on a therapeutic dose. 3. Rule out delirium. 4. Discussed other treatment options such as antipsychotics Reason for contiued inpatient stay Substantial Risk for: inability to function, rapid decompensation and med/psych decompensation Time Spent With Patient Time: Total time managing care of this patient today __20__ minutes.
[2022-05-13 16:37] LABS: Glucose, Whole Blood 271 mg/dL (60-115)
[2022-05-13] MEDS: Divalproex Sodium 500 MG TABLET.DR PO ×2 (17:23→20:37)
[2022-05-13] MEDS: OLANZapine 2.5 MG TABLET 7.5 MG PO (20:37)
[2022-05-13] MEDS: Pregabalin 75 MG CAPSULE PO (20:37)
[2022-05-13 20:46] LABS: Glucose, Whole Blood 212 mg/dL (60-115)
[2022-05-14 06:00] VITALS: BP 128/61; PULSE 90; RESP 16; TEMP 36.6; O2SAT 95
[2022-05-14 08:01] LABS: Glucose, Whole Blood 178 mg/dL (60-115)
[2022-05-14] MEDS: Divalproex Sodium 250 MG TABLET.DR PO (09:46)
[2022-05-14] MEDS: Insulin Glargine,Hum.rec.anlog 100 UNIT/ML 10 ML VIAL 60 UNIT SUBCUT (09:46)
[2022-05-14] MEDS: Enoxaparin Sodium 30 MG/0.3 ML SYRINGE SUBCUT (09:46)
[2022-05-14] MEDS: Insulin Lispro 100 UNIT/ML 3 ML VIAL SUBCUT ×4 (09:46→21:23)
[2022-05-14 11:40] LABS: Glucose, Whole Blood 286 mg/dL (60-115)
--- NOTE | 2022-05-14 13:52 | HO.PSYCHPN ---
Subjective Subjective Date of Service: 05/14/22 Reason For Visit: Bipolar D/O Current Episode Manic Subjective Notes: Conditional Voluntary Interim History: The nursing staff reported no evidence of luly or psychosis, she had being mostly of the time in her bed between meals. We have noticed that she is over-sedated with Zyprexa during the day. On interview I explained her that we are going to discontinue her Zyprexa during the day so she would be more awake and alert and increase Zyprexa only at night. On interview the patient denies new symptoms she is ready for discharge next Tuesday. Mental Status Exam Mental Status Exam Patient Appearance: Well Grooomed and Appropriate Patient Orientation: Person and Situation Level of Consciousness: Awake and Appropriate Patient Behavior: Guarded and Passive Mood Description: Withdrawn Affect Description: Constricted Patient Cognition Impaired: Yes Ability to Follow Directions: Good Speech Pattern: Clear Hallucinations: None Delusions: Not Present Thought Process: Distracted and Linear Thought Content: positive for [place] and positive for Circumstantial Judgement: Fair Diagnostics Vital Signs (24Hr): Vital Signs - 24 hr 05/14/22 06:00 Temperature 97.8 F Pulse Rate 90 Respiratory Rate 16 Blood Pressure 128/61 Pulse Oximetry 95 Oxygen Delivery Method Room Air BMI result Body Mass Index 36.3 Labs 05/10/22 07:40 05/10/22 07:40 Labs: Laboratory Results - last 48 hr 05/12/22 05/12/22 05/13/22 16:11 19:50 07:43 POC Glucose 229 H 236 H 204 H 05/13/22 05/13/22 05/13/22 11:32 16:25 20:40 POC Glucose 275 H 271 H 212 H 05/14/22 05/14/22 07:56 11:16 POC Glucose 178 H 286 H Medications Medications Current Medications Acetaminophen (Acetaminophen 325 Mg Tablet) 650 mg PO Q6H PRN PRN Reason: Headache/Pain Mild Scale (1-3) Al Hydroxide/Mg Hydroxide (Magnesium Hydrox/Alum Hydrox 30 Ml Oral.Susp) 30 ml PO Q6H PRN PRN Reason: Heartburn/Nausea Last Admin: 05/09/22 20:46 Dose: 30 ml Divalproex Sodium (Divalproex Sodium 250 Mg Tablet.Dr) 250 mg PO DAILY DMITRI Last Admin: 05/14/22 09:46 Dose: 250 mg Divalproex Sodium (Divalproex Sodium 500 Mg Tablet.Dr) 500 mg PO 1700,2100 [facility] Last Admin: 05/13/22 20:37 Dose: 500 mg Enoxaparin Sodium (Enoxaparin Sodium 30 Mg/0.3 Ml Syringe) 30 mg SUBCUT Q24H [facility] Last Admin: 05/14/22 09:46 Dose: 30 mg Glucose (Glucose Gel 15 Gm Gel..Gram.) 15 gm PO Q15M PRN; Protocol PRN Reason: per Hypoglycemia Standing Ord. Hydroxyzine HCl (Hydroxyzine Hcl 25 Mg Tablet) 25 mg PO Q6H PRN PRN Reason: Anxiety Dextrose (D10) 250 mls @ 750 mls/hr IV Q15M PRN; Protocol PRN Reason: per Hypoglycemia Standing Ord. Insulin Glargine (Insulin Glargine,Hum.Rec.Anlog 100 Unit/Ml 10 Ml Vial) 60 unit SUBCUT DAILY [facility] Last Admin: 05/14/22 09:46 Dose: 60 unit Insulin Human Lispro (Insulin Lispro 100 Unit/Ml 3 Ml Vial) 0 unit SUBCUT QIDACHS [facility]; Protocol Last Admin: 05/14/22 12:10 Dose: 6 unit Magnesium Hydroxide (Milk Of Magnesia 30 Ml Oral.Susp) 30 ml PO DAILY PRN PRN Reason: Constipation Melatonin (Melatonin 3 Mg Tablet) 3 mg PO BEDTIME PRN PRN Reason: Insomnia Olanzapine (Olanzapine 2.5 Mg Tablet) 2.5 mg PO Q6H PRN PRN Reason: agitation Olanzapine (Olanzapine 10 Mg Tablet) 10 mg PO BEDTIME DMITRI Pregabalin (Pregabalin 75 Mg Capsule) 75 mg PO BEDTIME [facility] Last Admin: 05/13/22 20:37 Dose: 75 mg Allergies Allergies Allergy/AdvReac Type Severity Reaction Status Date / Time No Known Allergies Allergy Verified 05/07/22 19:03 Assessment & Plan Assessment & Plan (1) Routine history and physical examination of adult: Status: Acute Code(s): Z00.00 - Encounter for general adult medical examination without abnormal findings (2) Bipolar disorder: Status: Acute Code(s): F31.9 - Bipolar disorder, unspecified Assessment and Plan: 05/09/22- CBCD, CMP, PT/INR 05/10 Valproate Level Continue current regime Plan Pt is a 71-year-old female with a PMH significant for?bipolar disorder, HTN, CKD, and diabetes who is admitted to [facility] after being found naked in her driveway throwing items. Patient was transferred from [facility] where she was treated for a tooth infection with Augmentin, UTI with ceftriaxone, MANJIT, hyponatremia, and urinary retention. Patient's glucose was apparently difficult to control. Medical consult for patient history and physical. Patient has no acute complaints at this time. Plan 1. Gather collateral information. 2. Continue Depakote since she is on a therapeutic dose. 3. Rule out delirium. 4. Discussed other treatment options such as antipsychotics and she agreed to change Zyprexa only at night so she could not be over-sedated during the day. 5. Discharge for next Tuesday Informed Consent: understands Reason for contiued inpatient stay Substantial Risk for: inability to function, rapid decompensation and med/psych decompensation Time Spent With Patient Time: Total time managing care of this patient today _20___ minutes.
[2022-05-14 16:10] LABS: Glucose, Whole Blood 194 mg/dL (60-115)
[2022-05-14] MEDS: Divalproex Sodium 500 MG TABLET.DR PO ×2 (16:28→21:01)
[2022-05-14 18:00] VITALS: BP 117/62; PULSE 91; RESP 18; TEMP 36.2; O2SAT 92
[2022-05-14] MEDS: OLANZapine 10 MG TABLET PO (21:02)
[2022-05-14] MEDS: Pregabalin 75 MG CAPSULE PO (21:02)
[2022-05-14 21:19] LABS: Glucose, Whole Blood 280 mg/dL (60-115)
[2022-05-15 08:24] LABS: Glucose, Whole Blood 241 mg/dL (60-115)
[2022-05-15] MEDS: Insulin Glargine,Hum.rec.anlog 100 UNIT/ML 10 ML VIAL 60 UNIT SUBCUT (09:06)
[2022-05-15] MEDS: Divalproex Sodium 250 MG TABLET.DR PO (09:06)
[2022-05-15] MEDS: Insulin Lispro 100 UNIT/ML 3 ML VIAL SUBCUT ×4 (09:07→21:04)
[2022-05-15] MEDS: Enoxaparin Sodium 30 MG/0.3 ML SYRINGE SUBCUT (09:07)
[2022-05-15 09:13] VITALS: BP 127/68; PULSE 100; RESP 18; TEMP 21.1; O2SAT 99
[2022-05-15 11:34] LABS: Glucose, Whole Blood 285 mg/dL (60-115)
--- NOTE | 2022-05-15 12:49 | HO.PSYCHPN ---
Subjective Subjective Date of Service: 05/15/22 Reason For Visit: Bipolar D/O Current Episode Manic Subjective Notes: Conditional Voluntary Interim History: Pt mostly in bed today. She reports she has been sleeping well at night but feels tired during the day. She reports she feels weak. She explains that her physical endurance is less and needs to get stronger. She denies SI/HI. No overt psychosis or delusional content noted or reported. No behavioral concerns. She states she is ready for discharge soon. Medication Compliance: Yes Review of Systems Review of Systems Patient has no acute complaints at this time. Yes all other systems are reviewed and are negative Constitutional: Reports no additional constitutional complaints Mental Status Exam Mental Status Exam Patient Appearance: Well Grooomed and Appropriate Patient Orientation: Person and Situation Level of Consciousness: Awake and Appropriate Patient Behavior: Guarded and Passive Mood Description: Withdrawn Affect Description: Constricted Patient Cognition Impaired: Yes Ability to Follow Directions: Good Speech Pattern: Clear Memory Description: Remote Impaired and Episodic Impaired Diagnostics Vital Signs (24Hr): Vital Signs - 24 hr 05/14/22 18:00 05/15/22 09:13 Temperature 97.2 F 69.9 F L Pulse Rate 91 100 Respiratory Rate 18 18 Blood Pressure 117/62 127/68 Pulse Oximetry 92 99 Oxygen Delivery Method Room Air Room Air BMI result Body Mass Index 36.3 Labs 05/10/22 07:40 05/10/22 07:40 Labs: Laboratory Results - last 48 hr 05/13/22 05/13/22 05/14/22 16:25 20:40 07:56 POC Glucose 271 H 212 H 178 H 05/14/22 05/14/22 05/14/22 11:16 16:04 21:13 POC Glucose 286 H 194 H 280 H 05/15/22 05/15/22 08:10 11:28 POC Glucose 241 H 285 H Medications Medications Current Medications Acetaminophen (Acetaminophen 325 Mg Tablet) 650 mg PO Q6H PRN PRN Reason: Headache/Pain Mild Scale (1-3) Al Hydroxide/Mg Hydroxide (Magnesium Hydrox/Alum Hydrox 30 Ml Oral.Susp) 30 ml PO Q6H PRN PRN Reason: Heartburn/Nausea Last Admin: 05/09/22 20:46 Dose: 30 ml Divalproex Sodium (Divalproex Sodium 250 Mg Tablet.Dr) 250 mg PO DAILY DMITRI Last Admin: 05/15/22 09:06 Dose: 250 mg Divalproex Sodium (Divalproex Sodium 500 Mg Tablet.Dr) 500 mg PO 1700,2100 [facility] Last Admin: 05/14/22 21:01 Dose: 500 mg Enoxaparin Sodium (Enoxaparin Sodium 30 Mg/0.3 Ml Syringe) 30 mg SUBCUT Q24H [facility] Last Admin: 05/15/22 09:07 Dose: 30 mg Glucose (Glucose Gel 15 Gm Gel..Gram.) 15 gm PO Q15M PRN; Protocol PRN Reason: per Hypoglycemia Standing Ord. Hydroxyzine HCl (Hydroxyzine Hcl 25 Mg Tablet) 25 mg PO Q6H PRN PRN Reason: Anxiety Dextrose (D10) 250 mls @ 750 mls/hr IV Q15M PRN; Protocol PRN Reason: per Hypoglycemia Standing Ord. Insulin Glargine (Insulin Glargine,Hum.Rec.Anlog 100 Unit/Ml 10 Ml Vial) 60 unit SUBCUT DAILY [facility] Last Admin: 05/15/22 09:06 Dose: 60 unit Insulin Human Lispro (Insulin Lispro 100 Unit/Ml 3 Ml Vial) 0 unit SUBCUT QIDACHS [facility]; Protocol Last Admin: 05/15/22 11:36 Dose: 6 unit Magnesium Hydroxide (Milk Of Magnesia 30 Ml Oral.Susp) 30 ml PO DAILY PRN PRN Reason: Constipation Melatonin (Melatonin 3 Mg Tablet) 3 mg PO BEDTIME PRN PRN Reason: Insomnia Olanzapine (Olanzapine 2.5 Mg Tablet) 2.5 mg PO Q6H PRN PRN Reason: agitation Olanzapine (Olanzapine 10 Mg Tablet) 10 mg PO BEDTIME [facility] Last Admin: 05/14/22 21:02 Dose: 10 mg Pregabalin (Pregabalin 75 Mg Capsule) 75 mg PO BEDTIME [facility] Last Admin: 05/14/22 21:02 Dose: 75 mg Allergies Allergies Allergy/AdvReac Type Severity Reaction Status Date / Time No Known Allergies Allergy Verified 05/07/22 19:03 Assessment & Plan Assessment & Plan (1) Bipolar disorder: Status: Acute Code(s): F31.9 - Bipolar disorder, unspecified Assessment and Plan: 05/09/22- CBCD, CMP, PT/INR 05/10 Valproate Level Continue current regime Plan Pt is a 71-year-old female with a PMH significant for?bipolar disorder, HTN, CKD, and diabetes who is admitted to [facility] after being found naked in her driveway throwing items. Patient was transferred from [facility] where she was treated for a tooth infection with Augmentin, UTI with ceftriaxone, MANJIT, hyponatremia, and urinary retention. Patient's glucose was apparently difficult to control. Medical consult for patient history and physical. Patient has no acute complaints at this time. Plan 1. Gather collateral information. 2. Continue Depakote since she is on a therapeutic dose. 3. Rule out delirium. 4. Discussed other treatment options such as antipsychotics and she agreed to change Zyprexa only at night so she could not be over-sedated during the day. 5. Discharge for next Monday 05/15 continue tx. Reason for contiued inpatient stay Substantial Risk for: inability to function Time Spent With Patient Time: Total time managing care of this patient today ____ minutes.
[2022-05-15 16:25] LABS: Glucose, Whole Blood 189 mg/dL (60-115)
[2022-05-15] MEDS: Divalproex Sodium 500 MG TABLET.DR PO ×2 (16:26→20:21)
[2022-05-15 18:00] VITALS: BP 110/57; PULSE 87; RESP 18; TEMP 36.3; O2SAT 92
[2022-05-15] MEDS: OLANZapine 10 MG TABLET PO (20:21)
[2022-05-15] MEDS: Pregabalin 75 MG CAPSULE PO (20:21)
[2022-05-15 20:58] LABS: Glucose, Whole Blood 243 mg/dL (60-115)
[2022-05-16 07:30] VITALS: BP 127/66; PULSE 88; RESP 16; TEMP 36.4; O2SAT 95
[2022-05-16 08:49] LABS: Glucose, Whole Blood 162 mg/dL (60-115)
[2022-05-16] MEDS: Insulin Glargine,Hum.rec.anlog 100 UNIT/ML 10 ML VIAL 60 UNIT SUBCUT (08:56)
[2022-05-16] MEDS: Enoxaparin Sodium 30 MG/0.3 ML SYRINGE SUBCUT (08:56)
[2022-05-16] MEDS: Insulin Lispro 100 UNIT/ML 3 ML VIAL SUBCUT ×4 (08:56→20:39)
[2022-05-16] MEDS: Divalproex Sodium 250 MG TABLET.DR PO (08:57)
[2022-05-16 11:25] LABS: Glucose, Whole Blood 190 mg/dL (60-115)
[2022-05-16 16:48] LABS: Glucose, Whole Blood 195 mg/dL (60-115)
[2022-05-16] MEDS: Divalproex Sodium 500 MG TABLET.DR PO ×2 (18:18→20:42)
--- NOTE | 2022-05-16 19:55 | HO.PSYCHPN ---
Subjective Subjective Date of Service: 05/16/22 Reason For Visit: Bipolar D/O Current Episode Manic Subjective Notes: Conditional Voluntary Interim History: Pt again mostly in bed today. She reports she has been sleeping well at night, which is confirmed by nursing, but feels tired during the day.She denies any physical concerns. She denies SI/HI. No overt psychosis or delusional content noted or reported. No behavioral concerns. She states she is ready for discharge soon. Review of Systems Review of Systems Patient has no acute complaints at this time. Yes all other systems are reviewed and are negative Constitutional: Reports no additional constitutional complaints Mental Status Exam Mental Status Exam Patient Appearance: Well Grooomed and Appropriate Patient Orientation: Person and Situation Level of Consciousness: Awake and Appropriate Patient Behavior: Guarded and Passive Mood Description: Withdrawn Affect Description: Constricted Patient Cognition Impaired: Yes Ability to Follow Directions: Good Speech Pattern: Clear Memory Description: Remote Impaired and Episodic Impaired Diagnostics Vital Signs (24Hr): Vital Signs - 24 hr 05/16/22 07:30 Temperature 97.5 F Pulse Rate 88 Respiratory Rate 16 Blood Pressure 127/66 Pulse Oximetry 95 Oxygen Delivery Method Room Air BMI result Body Mass Index 36.3 Labs 05/10/22 07:40 05/10/22 07:40 Labs: Laboratory Results - last 48 hr 05/14/22 05/15/22 05/15/22 21:13 08:10 11:28 POC Glucose 280 H 241 H 285 H 05/15/22 05/15/22 05/16/22 16:20 20:53 08:45 POC Glucose 189 H 243 H 162 H 05/16/22 05/16/22 11:17 16:40 POC Glucose 190 H 195 H Medications Medications Current Medications Acetaminophen (Acetaminophen 325 Mg Tablet) 650 mg PO Q6H PRN PRN Reason: Headache/Pain Mild Scale (1-3) Al Hydroxide/Mg Hydroxide (Magnesium Hydrox/Alum Hydrox 30 Ml Oral.Susp) 30 ml PO Q6H PRN PRN Reason: Heartburn/Nausea Last Admin: 05/09/22 20:46 Dose: 30 ml Divalproex Sodium (Divalproex Sodium 250 Mg Tablet.) 250 mg PO DAILY [facility] Last Admin: 05/16/22 08:57 Dose: 250 mg Divalproex Sodium (Divalproex Sodium 500 Mg Tablet.Dr) 500 mg PO 1700,2100 [facility] Last Admin: 05/16/22 18:18 Dose: 500 mg Enoxaparin Sodium (Enoxaparin Sodium 30 Mg/0.3 Ml Syringe) 30 mg SUBCUT Q24H [facility] Last Admin: 05/16/22 08:56 Dose: 30 mg Glucose (Glucose Gel 15 Gm Gel..Gram.) 15 gm PO Q15M PRN; Protocol PRN Reason: per Hypoglycemia Standing Ord. Hydroxyzine HCl (Hydroxyzine Hcl 25 Mg Tablet) 25 mg PO Q6H PRN PRN Reason: Anxiety Dextrose (D10) 250 mls @ 750 mls/hr IV Q15M PRN; Protocol PRN Reason: per Hypoglycemia Standing Ord. Insulin Glargine (Insulin Glargine,Hum.Rec.Anlog 100 Unit/Ml 10 Ml Vial) 60 unit SUBCUT DAILY [facility] Last Admin: 05/16/22 08:56 Dose: 60 unit Insulin Human Lispro (Insulin Lispro 100 Unit/Ml 3 Ml Vial) 0 unit SUBCUT QIDACHS [facility]; Protocol Last Admin: 05/16/22 17:12 Dose: 2 unit Magnesium Hydroxide (Milk Of Magnesia 30 Ml Oral.Susp) 30 ml PO DAILY PRN PRN Reason: Constipation Melatonin (Melatonin 3 Mg Tablet) 3 mg PO BEDTIME PRN PRN Reason: Insomnia Olanzapine (Olanzapine 2.5 Mg Tablet) 2.5 mg PO Q6H PRN PRN Reason: agitation Olanzapine (Olanzapine 10 Mg Tablet) 10 mg PO BEDTIME [facility] Last Admin: 05/15/22 20:21 Dose: 10 mg Pregabalin (Pregabalin 75 Mg Capsule) 75 mg PO BEDTIME [facility] Last Admin: 05/15/22 20:21 Dose: 75 mg Allergies Allergies Allergy/AdvReac Type Severity Reaction Status Date / Time No Known Allergies Allergy Verified 05/07/22 19:03 Assessment & Plan Assessment & Plan (1) Bipolar disorder: Status: Acute Code(s): F31.9 - Bipolar disorder, unspecified Assessment and Plan: 05/09/22- CBCD, CMP, PT/INR 05/10 Valproate Level Continue current regime Plan Pt is a 71-year-old female with a PMH significant for?bipolar disorder, HTN, CKD, and diabetes who is admitted to [facility] after being found naked in her driveway throwing items. Patient was transferred from [facility] where she was treated for a tooth infection with Augmentin, UTI with ceftriaxone, MANJIT, hyponatremia, and urinary retention. Patient's glucose was apparently difficult to control. Medical consult for patient history and physical. Patient has no acute complaints at this time. Plan 1. Gather collateral information. 2. Continue Depakote since she is on a therapeutic dose. 3. Rule out delirium. 4. Discussed other treatment options such as antipsychotics and she agreed to change Zyprexa only at night so she could not be over-sedated during the day. 5. Discharge for next Tuesday 05/16 continue tx. Reason for contiued inpatient stay Substantial Risk for: stable for discharge Time Spent With Patient Time: Total time managing care of this patient today ____ minutes.
[2022-05-16 19:59] LABS: Glucose, Whole Blood 252 mg/dL (60-115)
[2022-05-16] MEDS: Pregabalin 75 MG CAPSULE PO (20:39)
[2022-05-16] MEDS: OLANZapine 10 MG TABLET PO (20:39)
[2022-05-16 21:03] VITALS: BP 130/63; PULSE 114; RESP 18; TEMP 36.1; O2SAT 94
[2022-05-17 07:50] VITALS: BP 122/69; PULSE 100; RESP 18; TEMP 36.6; O2SAT 94
[2022-05-17 08:03] LABS: Glucose, Whole Blood 215 mg/dL (60-115)
[2022-05-17] MEDS: Insulin Glargine,Hum.rec.anlog 100 UNIT/ML 10 ML VIAL 60 UNIT SUBCUT (09:25)
[2022-05-17] MEDS: Divalproex Sodium 250 MG TABLET.DR PO (09:26)
[2022-05-17] MEDS: Enoxaparin Sodium 30 MG/0.3 ML SYRINGE SUBCUT (09:26)
[2022-05-17] MEDS: Insulin Lispro 100 UNIT/ML 3 ML VIAL SUBCUT ×4 (09:26→20:30)
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
[2022-05-17 15:37] LABS: Glucose, Whole Blood 278 mg/dL (60-115)
[2022-05-17 16:35] LABS: Glucose, Whole Blood 241 mg/dL (60-115)
[2022-05-17] MEDS: Divalproex Sodium 500 MG TABLET.DR PO ×2 (17:09→20:40)
[2022-05-17 18:00] VITALS: BP 105/60; PULSE 77; RESP 16; TEMP 36.2; O2SAT 95
[2022-05-17 20:10] LABS: Glucose, Whole Blood 240 mg/dL (60-115)
[2022-05-17] MEDS: Pregabalin 75 MG CAPSULE PO (20:27)
[2022-05-17] MEDS: OLANZapine 10 MG TABLET PO (20:27)
[2022-05-18 08:00] LABS: Glucose, Whole Blood 209 mg/dL (60-115)
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
[2022-05-18] MEDS: Enoxaparin Sodium 30 MG/0.3 ML SYRINGE SUBCUT (08:32)
[2022-05-18] MEDS: Insulin Lispro 100 UNIT/ML 3 ML VIAL SUBCUT (08:32)
[2022-05-18] MEDS: Insulin Glargine,Hum.rec.anlog 100 UNIT/ML 10 ML VIAL 60 UNIT SUBCUT (08:32)
[2022-05-18] MEDS: Divalproex Sodium 250 MG TABLET.DR PO (08:33)
[2022-05-18 09:01] VITALS: BP 132/66; PULSE 95; RESP 18; TEMP 35.6; O2SAT 99
--- NOTE | 2022-05-18 10:50 | PC.NURSE ---
Kimberli is alert and oriented x4. She reports that she is feeling good and safe to go home. Patient reported an understanding of discharge teachings and instructions. Patient denies SI/HI/AH/VH. Denies anxiety / depression.
== END 2022-05-18 11:10 | disposition home or self-care (01) | DRG 885 ==
PROVIDERS: Clinical Nurse Specialist Psychiatric/Mental Health, Adult; Admitting Provider Psychiatry & Neurology Psychiatry; PCP Psychiatry & Neurology Psychiatry; Visit Provider Psychiatry & Neurology Psychiatry
DX: F31.9 Bipolar disorder, unspecified (principal); F05 Delirium due to known physiological condition; I12.9 Hypertensive chronic kidney disease with stage 1 through stage 4 chronic kidney disease, or unspecified chronic kidney disease; E11.22 Type 2 diabetes mellitus with diabetic chronic kidney disease; N18.9 Chronic kidney disease, unspecified; Z87.891 Personal history of nicotine dependence; Z79.4 Long term (current) use of insulin; Z79.899 Other long term (current) drug therapy
CPT/HCPCS: 36415; 80053; 80061; 80164; 82607; 82746; 82947; 83036; 83735; 84439; 84443; 85025; 85610; 93005; J1643; J1650

== ENCOUNTER 2024-07-25 14:58 | Outpatient (AMB) | payer OTHER, MEDICARE, SELFPAY ==
[2024-07-25 14:58] VITALS: BP 116/80; PULSE 107; O2SAT 95; BMI 39.4
--- NOTE | 2024-07-25 14:58 | HO.NEPHOV ---
Vital Signs 07/25/24 14:58 Height 5 ft 9 in Weight 267 lb BMI 39.4 BP 116/80 Blood Pressure Location Rt radial Position Sitting Pulse 107 H Pulse Source Pulse Oximeter Pulse Oximetry (%) 95 Oxygen Delivery Method Room Air Intake Visit Reasons: ENP: CKD Network Control Technician Required: No Accompanied by: Self / Same As Patient Allergies No Known Allergies Allergy (Verified 07/25/24 15:01) Medication List - Last Reconciled 07/25/24 by Charles Sigala MD atenolol 50 mg PO DAILY atorvastatin 20 mg PO DAILY divalproex 500 mg PO 1700,2100 30 days insulin glargine (Lantus Solostar U-100 Insulin) units subcut insulin lispro subcut BID levothyroxine 50 mcg PO DAILY melatonin 3 mg PO BEDTIME PRN 30 days metformin 1,000 mg PO BID metoprolol succinate ER 25 mg PO DAILY olanzapine 10 mg PO BEDTIME 30 days pantoprazole 40 mg PO DAILY perphenazine 16 mg PO BID PRN saxagliptin (Onglyza) 5 mg PO DAILY sertraline 50 mg PO DAILY tolterodine ER 4 mg PO DAILY HPI Comments Details: 73-year-old female presenting with chronic kidney disease. She was monitored by Dr. Bernal, who identified her kidney function at 30%. This decline is new, as she had no prior history of kidney issues. The patient?s diabetic history stretches back to her 40s, now for nearly 30 years, with complications including diabetic neuropathy. She reports chronic diarrhea over the last year, only partially relieved by Metamucil. Her dietary habits avoid high salt intake, which could influence her cardiac and renal health. She does not have a history of urinary issues or heart problems, and no recent difficulties with breathing or edema were noted. 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 Acute kidney injury Morbid (severe) obesity due to excess calories Dyspnea on exertion Bipolar 1 disorder, mixed Anxiety Depression, unspecified Hyperlipidemia Type 2 diabetes mellitus without complications Hypertension Hypothyroidism Bipolar disorder Social History Household Members: None Housing: Condominium Do you presently have visiting nurse or other home services: No Unable to assess alcohol history related to: Unknown Patient Tobacco Use Status: Former Tobacco user e-Cigarette/Vaping Use: Never Used service: No Sexual orientation: Straight/Heterosexual Review of Systems Const Denies fever(s) and Denies weight loss Card Denies chest pain Resp Denies cough and Denies hemoptysis GI Denies abdominal pain, Denies diarrhea and Denies nausea Musc Denies back pain Neuro Denies focal weakness Physical Exam Vital Signs: Last Vital Signs Pulse 107 H 07/25/24 14:58 BP 116/80 07/25/24 14:58 Pulse Ox 95 07/25/24 14:58 Oxygen Delivery Method Room Air 07/25/24 14:58 BMI result Body Mass Index 39.4 Comfortable Neck supple no JVD. Lungs entry equal no rales. Heart S1-S2 heard no gallop or rub. Abdomen soft nontender. Neuro alert awake oriented. No asterixis. Extremities no edema. Results Reviewed Nephrology Results: Hgb 14.1 g/dl (12.0-16.0) 05/10/22 WBC 7.7 X10*3/uL (4.8-10.8) 05/10/22 Plt Count 187 X10*3/uL (160-400) 05/10/22 Sodium 140 mmol/L (135-145) 05/10/22 Potassium 4.4 mmol/L (3.3-5.1) 05/10/22 Chloride 102 mmol/L (96-108) 05/10/22 Carbon Dioxide 27 mmol/L (22-29) 05/10/22 BUN 34 mg/dL (9-16) H 05/10/22 Creatinine 1.76 mg/dL (0.5-1.4) H 05/10/22 Calcium 9.8 mg/dL (8.4-10.2) 05/10/22 Assessment & Plan Assessment & Plan (1) CKD (chronic kidney disease): Code(s): N18.9 - Chronic kidney disease, unspecified Category: Medical (2) Obesity: Code(s): E66.9 - Obesity, unspecified Category: Medical (3) Hypertension: Code(s): I10 - Essential (primary) hypertension Category: Medical Plan Chronic kidney disease most likely due to underlying diabetic kidney disease. Nondiabetic causes need to be ruled out. Obstructive uropathy should be ruled out as well Workup initiated. Check urine for protein creatinine ratio Check renal ultrasonogram. Maintain blood pressure less than 130/80 Continue to avoid nephrotoxic agents including NSAIDs. Maintain A1c less than 7%. Discussed weight loss. Encouraged her to stay on low-sodium diet and increase p.o. fluid intake. Further workup will be determined based on the outcome of the above baseline investigations. We will be happy to follow along with the team. Orders: Orders Complete Blood Count no Diff 07/25/24 N18.9 - Chronic kidney disease, unspecified Parathyroid Hormone Intact 07/25/24 N18.9 - Chronic kidney disease, unspecified UA and rflx microscopic 07/25/24 N18.9 - Chronic kidney disease, unspecified Total Protein Urine Random 07/25/24 N18.9 - Chronic kidney disease, unspecified Creatinine Urine 07/25/24 N18.9 - Chronic kidney disease, unspecified Comprehensive Met. Panel 07/25/24 N18.9 - Chronic kidney disease, unspecified US renal BI 07/25/24 I10 - Essential (primary) hypertension, N18.9 - Chronic kidney disease, unspecified Coding Level of Care Code New Pt Level 4 (97355) Diagnoses CKD (chronic kidney disease) N18.9 Obesity E66.9 Hypertension I10
--- OUTSIDE RECORDS SUMMARY | 2024-07-25 17:13 | XMS_ITS ---
Author Name [facility] Organization Unknown Results Test Name/Text Value Interpretation Date Range Source Troponin I SerPl HS-mCnc 14ng/L Normal [id number] 0 - 14 [facility] LACTIC ACID 3mmol/L Above high normal [id number] - [facility] Glucose Bld-mCnc 243mg/dL Above high normal [id number] 70 - 199 [facility] Creat SerPl-mCnc 1.86mg/dL Above high normal 267864406740 0. 5 - 1 [facility] BUN SerPl-mCnc 37mg/dL Above high normal [id number] 7 - 17 [facility] Prot SerPl-mCnc 7.2g/dL Normal [id number] 6.4 - 8.5 [facility] eGFRcr SerPlBld CKD-EPI 2021 29mL/min/1.73 m2 Below low normal [id number] - [facility] Sodium SerPl-sCnc 138mmol/L Normal [id number] 135 - 145 [facility] Anion Gap SerPl-sCnc 14 Normal [id number] 5 - 14 [facility] ALP SerPl-cCnc 95unit/L Normal [id number] 34 - 104 [facility] CO2 SerPl-sCnc 21mmol/L Below low normal 060530999280 24 - 32 [facility] BUN/Creat SerPl 19.9 Normal [id number] 12 - 20 [facility] AST SerPl-cCnc 10unit/L Normal [id number] 5 - 40 [facility] ALT SerPl-cCnc 9unit/L Normal [id number] 7 - 52 [facility] Potassium SerPl-sCnc 4mmol/L Normal [id number] 3.5 - 5.1 [facility] Glucose SerPl-mCnc 326mg/dL Above high normal [id number] 70 - 199 [facility] Albumin SerPl-mCnc 4.1g/dL Normal [id number] 3.5 - 5 [facility] Bilirub SerPl-mCnc 0.3mg/dL Normal [id number] 0.3 - 1 [facility] Chloride SerPl-sCnc 103mmol/L Normal [id number] 98 - 10 7 [facility] Calcium SerPl-mCnc 10.1mg/dL Normal [id number] 8.4 - 10 .2 [facility] RBC # Bld Auto 4.2M/mcL Normal [id number] 4.2 - 5.4 [facility] Monocytes # Bld Auto 0.84K/mcL Above high normal [id number] 9 0 - 0.8 [facility] Basophils # Bld Auto 0.03K/mcL Normal [id number] 0 - 0. 2 [facility] Lymphocytes/leuk NFr Bld Auto 36.6% Normal [id number] 20 - 48 [facility] WBC # Bld Auto 8K/mcL Normal [id number] 4 - 10.5 [facility] Platelet # Bld Auto 189K/mcL Normal [id number] 150 - 4 50 [facility] Hgb Bld-mCnc 12.9g/dL Normal [id number] 12.5 - 16 [facility] PMV Bld Auto 9FL Normal [id number] 7.4 - 11.4 [facility] Basophils/leuk NFr Bld Auto 0.4% Normal 0 - 2 [facility] Neutrophils # Bld Auto 3.67K/mcL Normal [id number] 1.8 - 7.8 [facility] Neutrophils/leuk NFr Bld Auto 45.8% Normal [id number] 44 - 74 [facility] Eosinophil/leuk NFr Bld Auto 5.8% Normal [id number] 0 - 6 [facility] Lymphocytes # Bld Auto 2.93K/mcL Normal 1 - 3.2 [facility] MCH RBC Qn Auto 30.7pcg Normal 25 - 33 [facility] Monocytes/leuk NFr Bld Auto 10.5% Normal 2 - 12 [facility] Eosinophil # Bld Auto 0.46K/mcL Normal 0 - 0 .5 [facility] RDW RBC Auto-Rto 14.1% Normal 12.1 - 16.2 [facility] Hct VFr Bld Auto 39.6% Normal 37 - 47 [facility] MCHC RBC Auto-mCnc 32.6g/dL Normal 32 - 36 [facility] MCV RBC Auto 94.3FL Normal 78 - 100 [facility] WBC clumps #/area UrnS HPF Rare Abnormal [id number] - [facility] RBC #/area UrnS HPF 3/HPF Normal [id number] 0 - 3 [facility] Squamous Epithelial, Urine 0/HPF Normal [id number] 0 - 5 [facility] Bacteria #/area UrnS HPF 1+ Abnormal [id number] - [facility] Non-Squamous Epithelial, Urine 1/HPF Above high normal [id number] - [facility] WBC #/area UrnS HPF 20/HPF Above high normal [id number] 0 - 5 [facility] Clarity Ur Cloudy Abnormal [id number] - [facility] Hgb Ur Ql Trace Abnormal [id number] - [facility] Color Ur Yellow Normal [id number] - [facility] pH Ur 5.5pH Normal [id number] 5 - 8 [facility] Nitrite Ur Ql Negative Normal [id number] - [facility] Leukocyte esterase Ur Ql Strip Moderate Abnormal [id number] - [facility] Ketones Ur-mCnc Trace Abnormal - [facility] Prot Ur Strip-mCnc 100mg/dL Abnormal [id number] - [facility] Sp Gr Ur 1.015 Normal [id number] 1.005 - 1.03 [facility] Glucose Ur Ql >=1000 Abnormal [id number] - [facility] GLUCOSE BLDC GLUCOMTR MCNC 393mg/dL Above high normal [id number] 70 - 199 [facility] MAGNESIUM SERPL MCNC 1.5mg/dL Below low normal [id number] 1.7 - 2.8 [facility] SODIUM SERPL SCNC 138mmol/L Normal [id number] 135 - 145 [facility] GLUCOSE SERPL MCNC 294mg/dL Above high normal [id number] 70 - 199 [facility] CREAT SERPL MCNC 1.3mg/dL Above high normal [id number] 0. 5 - 1 [facility] CALCIUM SERPL MCNC 9.2mg/dL Normal [id number] 8.4 - 10 .2 [facility] Glomerular filtration rate/1.73 sq M. predicted 44 Below low normal 482296721063 60 - [facility] CHLORIDE SERPL SCNC 107mmol/L Normal [id number] 98 - 10 7 [facility] HCO3 SER SCNC 22mmol/L Below low normal [id number] 24 - 3 2 [facility] ANION GAP SERPL SCNC 9mmol/L Normal [id number] 5 - 14 [facility] BUN SERPL MCNC 17mg/dL Normal [id number] 7 - 17 [facility] POTASSIUM SERPL SCNC 4mmol/L Normal [id number] 3.5 - 5.1 [facility] GLUCOSE BLDC GLUCOMTR MCNC 289mg/dL Above high normal [id number] 70 - 199 [facility] GLUCOSE BLDC GLUCOMTR MCNC 369mg/dL Above high normal [id number] 70 - 199 [facility] GLUCOSE BLDC GLUCOMTR MCNC 371mg/dL Above high normal [id number] 70 - 199 [facility] GLUCOSE BLDC GLUCOMTR MCNC 428mg/dL Above high normal [id number] 70 - 199 [facility] GLUCOSE BLDC GLUCOMTR MCNC 408mg/dL Above high normal [id number] 70 - 199 [facility] SQUAMOUS NO./AREA URNS LPF 2/LPF Normal [id number] 0 - 5 [facility] WBC number/area UrnS Auto >20 Above high normal [id number] 0 - 5 [facility] RBC number/area UrnS Auto 3/HPF Normal [id number] 0 - 3 [facility] Bacteria Ur Ql Auto PRESENT Abnormal [id number] - [facility] Prot Ur Ql Strip.auto NEGATIVE Normal [id number] - [facility] pH Ur Strip.auto 6 Normal [id number] 4.5 - 8 [facility] Leukocyte esterase Ur Ql Strip.auto TRACE Abnormal [id number] - [facility] Clarity Ur Refract.auto HAZY Normal [id number] [facility] Ketones Ur Ql Strip.auto NEGATIVE Normal [id number] - [facility] Glucose Ur Ql Strip.auto 500mg/dL Abnormal [id number] - [facility] Hgb Ur Ql Strip.auto TRACE Abnormal [id number] - [facility] Nitrite Ur Ql Strip.auto NEGATIVE Normal [id number] - [facility] Sp Gr Ur Strip.auto 1.01 Normal [id number] 1.0 05 - 1.03 [facility] SPECIMEN SOURCE XXX URINE CLEAN CATCH Normal [id number] [facility] SODIUM SERPL SCNC 133mmol/L Below low normal 13 5 - 145 [facility] CALCIUM SERPL MCNC 9.2mg/dL Normal 8.4 - 10 .2 [facility] GLUCOSE SERPL MCNC 533mg/dL Above high normal [id number] 70 - 199 [facility] HCO3 SER SCNC 23mmol/L Below low normal 24 - 3 2 [facility] CHLORIDE SERPL SCNC 97mmol/L Below low normal [id number] 98 - 107 [facility] Glomerular filtration rate/1.73 sq M. predicted 37 Below low normal 628148460110 60 - [facility] CREAT SERPL MCNC 1.5mg/dL Above high normal [id number] 0. 5 - 1 [facility] POTASSIUM SERPL SCNC 3.6mmol/L Normal [id number] 3.5 - 5.1 [facility] BUN SERPL MCNC 26mg/dL Above high normal 7 - 17 [facility] ANION GAP SERPL SCNC 13mmol/L Normal 5 - 14 [facility] OSMOLALITY SERPL 315mOsm/kg Above high normal 943867669910 2 75 - 295 [facility] IMMATURE GRANULOCYTE, PERCENT 0.7% Normal 0 - 1 [facility] HGB BLD MCNC 13.5g/dL Normal 12.5 - 16 [facility] BASOPHILS NFR BLD AUTO 0.4% Normal 0 - 2 [facility] PMV BLD AUTO 9.5fL Normal 7.4 - 11.4 [facility] NEUTROPHILS NFR BLD AUTO 51.6% Normal 44 - 74 [facility] EOSINOPHIL NO. BLD AUTO 0.1K/uL Normal 0 - 0.5 [facility] PLATELET NO. BLD AUTO 218K/uL Normal 150 - 450 [facility] MCH RBC QN AUTO 30.1pg Normal 25 - 33 C [facility] MCHC RBC AUTO MCNC 33.7g/dL Normal 32 - 36 [facility] EOSINOPHIL NFR BLD AUTO 2% Normal 0 - 6 [facility] NUCLEATED RBC 0% Normal 0 - 1 [facility] HS WBC NO. BLD AUTO 6.8K/uL Normal 4 - 10.5 [facility] RBC NO. BLD AUTO 4.48M/uL Normal 4.2 - 5.4 [facility] LYMPHOCYTES NO. BLD AUTO 2.5K/uL Normal 1 - 3.2 [facility] NEUTROPHILS NO. BLD AUTO 3.5K/uL Normal 1.8 - 7.8 [facility] BASOPHILS IN BLOOD BY AUTOMATED COUNT 0K/uL Normal 0 - 0.2 [facility] MONOCYTES NO. BLD AUTO 0.6K/uL Normal 0 - 0.8 [facility] LYMPHOCYTES NFR BLD AUTO 36.1% Normal 20 - 48 [facility] MONOCYTES NFR BLD AUTO 9.2% Normal 2 - 12 [facility] RDW RBC AUTO RTO 13.8% Normal 12.1 - 16.2 [facility] IMMATURE GRANULOCYTE, ABSOLUTE 0.05k/uL Normal [id number] - 0.1 [facility] MCV RBC AUTO 89.5fL Normal 78 - 100 [facility] HCT VFR BLD AUTO 40.1% Normal 37 - 47 [facility] BASE DEFICIT BLDV SCNC 0mmol/L Normal [facility] PO2 BLDV 32mmHg Normal [facility] SAO2% BLDV 59.7% Normal [facility] H PH BLDV 7.31 Below low normal 7.35 - 7.45 [facility] HCO3 BLDV SCNC 23.5mmol/L Normal [facility] PCO2 BLDV 53mmHg Normal [facility] BLOOD GAS SITE VENOUS Normal [id number] [facility] MAGNESIUM SERPL MCNC 1.2mg/dL Below low normal 1.7 - 2.8 [facility] GLUCOSE BLDC GLUCOMTR MCNC 487mg/dL Above high normal 70 - 199 [facility] GLYCOHEMOGLOBIN (A1C) 7.2% Above high normal [id number] 18 4 - 5.6 [facility] VALPROIC ACID (DEPAKENE) 70ug/mL Normal 50 - 100 [facility] WBC > 50 Above high normal 0 - 0 [facility] RBC 2/HPF Above high normal 0 - 0 [facility] BACTERIA 4+ Critically abnormal - [facility] PROTEIN 30mg/dL Critically abnormal - [facility] COLOR Yellow Normal - [facility] H PH 5.5 Normal 5 - 8 [facility] H APPEARANCE Turbid Normal - [facility]. ESTERASE Large Critically [facility] 0.2mg/dL Normal - [facility] GLUCOSE Negative Normal - [facility] H BILIRUBIN Negative Normal - [facility] H NITRITE Positive Critically abnormal - [facility] KETONES Trace Critically abnormal - [facility] BLOOD Small Critically abnormal - [facility] SPECIFIC GRAVITY 1.02 Normal 1.005 - 1.03 [facility] GLUCOSE BLDC GLUCOMTR MCNC 118mg/dL Normal [id number] 70 - 199 [facility] GLUCOSE BLDC GLUCOMTR MCNC 207mg/dL Above high normal [id number] 70 - 199 [facility] GLUCOSE BLDC GLUCOMTR MCNC 158mg/dL Normal [id number] 70 - 199 [facility] GLUCOSE BLDC GLUCOMTR MCNC 181mg/dL Normal [id number] 70 - 199 [facility] GLUCOSE BLDC GLUCOMTR MCNC 244mg/dL Above high normal [id number] 70 - 199 [facility] GLUCOSE BLDC GLUCOMTR MCNC 157mg/dL Normal [id number] 70 - 199 [facility] GLUCOSE BLDC GLUCOMTR MCNC 166mg/dL Normal [id number] 70 - 199 [facility] GLUCOSE BLDC GLUCOMTR MCNC 227mg/dL Above high normal [id number] 70 - 199 [facility] GLUCOSE BLDC GLUCOMTR MCNC 91mg/dL Normal [id number] 70 - 199 [facility] GLUCOSE BLDC GLUCOMTR MCNC 165mg/dL Normal [id number] 70 - 199 [facility] GLUCOSE BLDC GLUCOMTR MCNC 170mg/dL Normal [id number] 70 - 199 [facility] GLUCOSE BLDC GLUCOMTR MCNC 215mg/dL Above high normal [id number] 70 - 199 [facility] GLUCOSE BLDC GLUCOMTR MCNC 121mg/dL Normal [id number] 70 - 199 [facility] GLUCOSE BLDC GLUCOMTR MCNC 179mg/dL Normal [id number] 70 - 199 [facility] GLUCOSE BLDC GLUCOMTR MCNC 186mg/dL Normal [id number] 70 - 199 [facility] GLUCOSE BLDC GLUCOMTR MCNC 192mg/dL Normal [id number] 70 - 199 [facility] GLUCOSE BLDC GLUCOMTR MCNC 92mg/dL Normal [id number] 70 - 199 [facility] GLUCOSE BLDC GLUCOMTR MCNC 148mg/dL Normal [id number] 70 - 199 [facility] GLUCOSE BLDC GLUCOMTR MCNC 144mg/dL Normal [id number] 70 - 199 [facility] GLUCOSE BLDC GLUCOMTR MCNC 144mg/dL Normal [id number] 70 - 199 [facility] GLUCOSE BLDC GLUCOMTR MCNC 130mg/dL Normal [id number] 70 - 199 [facility] GLUCOSE BLDC GLUCOMTR MCNC 163mg/dL Normal [id number] 70 - 199 [facility] GLUCOSE BLDC GLUCOMTR MCNC 153mg/dL Normal [id number] 70 - 199 [facility] GLUCOSE BLDC GLUCOMTR MCNC 140mg/dL Normal [id number] 70 - 199 [facility] GLUCOSE BLDC GLUCOMTR MCNC 97mg/dL Normal [id number] 70 - 199 [facility] GLUCOSE BLDC GLUCOMTR MCNC 175mg/dL Normal [id number] 70 - 199 [facility] GLUCOSE BLDC GLUCOMTR MCNC 147mg/dL Normal [id number] 70 - 199 [facility] GLUCOSE BLDC GLUCOMTR MCNC 163mg/dL Normal [id number] 70 - 199 [facility] GLUCOSE BLDC GLUCOMTR MCNC 138mg/dL Normal [id number] 70 - 199 [facility] GLUCOSE BLDC GLUCOMTR MCNC 147mg/dL Normal [id number] 70 - 199 [facility] GLUCOSE BLDC GLUCOMTR MCNC 153mg/dL Normal [id number] 70 - 199 [facility] GLUCOSE BLDC GLUCOMTR MCNC 146mg/dL Normal [id number] 70 - 199 [facility] GLUCOSE BLDC GLUCOMTR MCNC 98mg/dL Normal [id number] 70 - 199 [facility] GLUCOSE BLDC GLUCOMTR MCNC 153mg/dL Normal [id number] 70 - 199 [facility] GLUCOSE BLDC GLUCOMTR MCNC 187mg/dL Normal [id number] 70 - 199 [facility] GLUCOSE BLDC GLUCOMTR MCNC 175mg/dL Normal [id number] 70 - 199 [facility] GLUCOSE BLDC GLUCOMTR MCNC 109mg/dL Normal [id number] 70 - 199 [facility] GLUCOSE BLDC GLUCOMTR MCNC 174mg/dL Normal [id number] 70 - 199 [facility] GLUCOSE BLDC GLUCOMTR MCNC 133mg/dL Normal [id number] 70 - 199 [facility] GLUCOSE BLDC GLUCOMTR MCNC 154mg/dL Normal [id number] 70 - 199 [facility] GLUCOSE BLDC GLUCOMTR MCNC 127mg/dL Normal [id number] 70 - 199 [facility] GLUCOSE BLDC GLUCOMTR MCNC 155mg/dL Normal [id number] 70 - 199 [facility] GLUCOSE BLDC GLUCOMTR MCNC 170mg/dL Normal [id number] 70 - 199 [facility] GLUCOSE BLDC GLUCOMTR MCNC 138mg/dL Normal [id number] 70 - 199 [facility] GLUCOSE BLDC GLUCOMTR MCNC 92mg/dL Normal [id number] 70 - 199 [facility] GLUCOSE BLDC GLUCOMTR MCNC 146mg/dL Normal [id number] 70 - 199 [facility] GLUCOSE BLDC GLUCOMTR MCNC 150mg/dL Normal [id number] 70 - 199 [facility] GLUCOSE BLDC GLUCOMTR MCNC 93mg/dL Normal [id number] 70 - 199 [facility] GLUCOSE BLDC GLUCOMTR MCNC 147mg/dL Normal [id number] 70 - 199 [facility] GLUCOSE BLDC GLUCOMTR MCNC 121mg/dL Normal [id number] 70 - 199 [facility] GLUCOSE BLDC GLUCOMTR MCNC 137mg/dL Normal [id number] 70 - 199 [facility] GLUCOSE BLDC GLUCOMTR MCNC 147mg/dL Normal [id number] 70 - 199 [facility] GLUCOSE BLDC GLUCOMTR MCNC 101mg/dL Normal [id number] 70 - 199 [facility] GLUCOSE BLDC GLUCOMTR MCNC 162mg/dL Normal [id number] 70 - 199 [facility] GLUCOSE BLDC GLUCOMTR MCNC 156mg/dL Normal [id number] 70 - 199 [facility] GLUCOSE BLDC GLUCOMTR MCNC 130mg/dL Normal [id number] 70 - 199 [facility] GLUCOSE BLDC GLUCOMTR MCNC 94mg/dL Normal [id number] 70 - 199 [facility] GLUCOSE BLDC GLUCOMTR MCNC 177mg/dL Normal [id number] 70 - 199 [facility] GLUCOSE BLDC GLUCOMTR MCNC 174mg/dL Normal [id number] 70 - 199 [facility] GLUCOSE BLDC GLUCOMTR MCNC 141mg/dL Normal [id number] 70 - 199 [facility] GLUCOSE BLDC GLUCOMTR MCNC 102mg/dL Normal [id number] 70 - 199 [facility] GLUCOSE BLDC GLUCOMTR MCNC 158mg/dL Normal [id number] 70 - 199 [facility] GLUCOSE BLDC GLUCOMTR MCNC 112mg/dL Normal [id number] 70 - 199 [facility] GLUCOSE BLDC GLUCOMTR MCNC 150mg/dL Normal [id number] 70 - 199 [facility] GLUCOSE BLDC GLUCOMTR MCNC 102mg/dL Normal [id number] 70 - 199 [facility] GLUCOSE BLDC GLUCOMTR MCNC 163mg/dL Normal [id number] 70 - 199 [facility] GLUCOSE BLDC GLUCOMTR MCNC 146mg/dL Normal [id number] 70 - 199 [facility] GLUCOSE BLDC GLUCOMTR MCNC 173mg/dL Normal [id number] 70 - 199 [facility] GLUCOSE BLDC GLUCOMTR MCNC 110mg/dL Normal [id number] 70 - 199 [facility] GLUCOSE BLDC GLUCOMTR MCNC 170mg/dL Normal [id number] 70 - 199 [facility] GLUCOSE BLDC GLUCOMTR MCNC 136mg/dL Normal [id number] 70 - 199 [facility] GLUCOSE BLDC GLUCOMTR MCNC 139mg/dL Normal [id number] 70 - 199 [facility] GLUCOSE BLDC GLUCOMTR MCNC 107mg/dL Normal [id number] 70 - 199 [facility] GLUCOSE BLDC GLUCOMTR MCNC 162mg/dL Normal [id number] 70 - 199 [facility] GLUCOSE BLDC GLUCOMTR MCNC 190mg/dL Normal [id number] 70 - 199 [facility] GLUCOSE BLDC GLUCOMTR MCNC 159mg/dL Normal [id number] 70 - 199 [facility] GLUCOSE BLDC GLUCOMTR MCNC 185mg/dL Normal [id number] 70 - 199 [facility] GLUCOSE BLDC GLUCOMTR MCNC 193mg/dL Normal [id number] 70 - 199 [facility] GLUCOSE BLDC GLUCOMTR MCNC 108mg/dL Normal [id number] 70 - 199 [facility] GLUCOSE BLDC GLUCOMTR MCNC 110mg/dL Normal [id number] 70 - 199 [facility] GLUCOSE BLDC GLUCOMTR MCNC 110mg/dL Normal [id number] 70 - 199 [facility] GLUCOSE BLDC GLUCOMTR MCNC 165mg/dL Normal [id number] 70 - 199 [facility] GLUCOSE BLDC GLUCOMTR MCNC 136mg/dL Normal [id number] 70 - 199 [facility] GLUCOSE BLDC GLUCOMTR MCNC 125mg/dL Normal [id number] 70 - 199 [facility] GLUCOSE BLDC GLUCOMTR MCNC 164mg/dL Normal [id number] 70 - 199 [facility] GLUCOSE BLDC GLUCOMTR MCNC 153mg/dL Normal [id number] 70 - 199 [facility] GLUCOSE BLDC GLUCOMTR MCNC 129mg/dL Normal [id number] 70 - 199 [facility] GLUCOSE BLDC GLUCOMTR MCNC 116mg/dL Normal [id number] 70 - 199 [facility] GLUCOSE BLDC GLUCOMTR MCNC 185mg/dL Normal [id number] 70 - 199 [facility] GLUCOSE BLDC GLUCOMTR MCNC 158mg/dL Normal [id number] 70 - 199 [facility] GLUCOSE BLDC GLUCOMTR MCNC 145mg/dL Normal [id number] 70 - 199 [facility] GLUCOSE BLDC GLUCOMTR MCNC 107mg/dL Normal [id number] 70 - 199 [facility] GLUCOSE BLDC GLUCOMTR MCNC 157mg/dL Normal [id number] 70 - 199 [facility] GLUCOSE BLDC GLUCOMTR MCNC 126mg/dL Normal [id number] 70 - 199 [facility] GLUCOSE BLDC GLUCOMTR MCNC 127mg/dL Normal [id number] 70 - 199 [facility] GLUCOSE BLDC GLUCOMTR MCNC 102mg/dL Normal [id number] 70 - 199 [facility] GLUCOSE BLDC GLUCOMTR MCNC 113mg/dL Normal [id number] 70 - 199 [facility] GLUCOSE BLDC GLUCOMTR MCNC 189mg/dL Normal [id number] 70 - 199 [facility] GLUCOSE BLDC GLUCOMTR MCNC 161mg/dL Normal [id number] 70 - 199 [facility] GLUCOSE BLDC GLUCOMTR MCNC 94mg/dL Normal [id number] 70 - 199 [facility] GLUCOSE BLDC GLUCOMTR MCNC 143mg/dL Normal [id number] 70 - 199 [facility] GLUCOSE BLDC GLUCOMTR MCNC 169mg/dL Normal [id number] 70 - 199 [facility] GLUCOSE BLDC GLUCOMTR MCNC 146mg/dL Normal [id number] 70 - 199 [facility] GLUCOSE BLDC GLUCOMTR MCNC 134mg/dL Normal [id number] 70 - 199 [facility] GLUCOSE BLDC GLUCOMTR MCNC 125mg/dL Normal [id number] 70 - 199 [facility] GLUCOSE BLDC GLUCOMTR MCNC 157mg/dL Normal [id number] 70 - 199 [facility] GLUCOSE BLDC GLUCOMTR MCNC 130mg/dL Normal [id number] 70 - 199 [facility] GLUCOSE BLDC GLUCOMTR MCNC 117mg/dL Normal [id number] 70 - 199 [facility] GLUCOSE BLDC GLUCOMTR MCNC 203mg/dL Above high normal [id number] 70 - 199 [facility] GLUCOSE BLDC GLUCOMTR MCNC 127mg/dL Normal [id number] 70 - 199 [facility] GLUCOSE BLDC GLUCOMTR MCNC 116mg/dL Normal [id number] 70 - 199 [facility] GLUCOSE BLDC GLUCOMTR MCNC 107mg/dL Normal [id number] 70 - 199 [facility] GLUCOSE BLDC GLUCOMTR MCNC 106mg/dL Normal [id number] 70 - 199 [facility] GLUCOSE BLDC GLUCOMTR MCNC 169mg/dL Normal [id number] 70 - 199 [facility] GLUCOSE BLDC GLUCOMTR MCNC 88mg/dL Normal [id number] 70 - 199 [facility]UCOSE [facility] GLUCOMTR [facility] 147mg/dL Normal [id number] 70 - 199 [facility] GLUCOMTR [facility] 183mg/dL Normal [id number] 70 - 199 [facility]UCOSE [facility] GLUCOMTR [facility] 171mg/dL Normal [id number] 70 - 199 [facility]UCOSE [facility] GLUCOMTR [facility] 101mg/dL Normal [id number] 70 - 199 [facility] GLUCOSE [facility] GLUCOMTR [facility] 163mg/dL Normal [id number] 70 - 199 [facility] GLUCOSE [facility] GLUCOMTR [facility] 129mg/dL Normal [id number] 70 - 199 [facility] GLUCOSE [facility] GLUCOMTR [facility] 162mg/dL Normal [id number] 70 - 199 [facility] GLUCOSE [facility] GLUCOMTR [facility] 99mg/dL Normal [id number] 70 - 199 [facility] GLUCOSE [facility] GLUCOMTR [facility] 129mg/dL Normal [id number] 70 - 199 [facility] GLUCOSE [facility] GLUCOMTR [facility] 170mg/dL Normal [id number] 70 - 199 [facility] GLUCOSE [facility] GLUCOMTR [facility] 95mg/dL Normal [id number] 70 - 199 [facility] GLUCOSE [facility] GLUCOMTR [facility] 106mg/dL Normal [id number] 70 - 199 [facility] GLUCOSE [facility] GLUCOMTR [facility] 138mg/dL Normal [id number] 70 - 199 [facility] GLUCOSE [facility] GLUCOMTR [facility] 207mg/dL Above high normal [id number] 70 - 199 [facility] GLUCOSE [facility] GLUCOMTR [facility] 251mg/dL Above high normal [id number] 70 - 199 [facility] GLUCOSE [facility] GLUCOMTR [facility] 103mg/dL Normal [id number] 70 - 199 [facility] VALPROATE SERPL-MCNC 82mcg/mL Normal [id number] 50 - 1 00 [facility] GLU[facility]SE [facility] GLUCOMTR MCNC 150mg/dL Normal [id number] 70 - 199 [facility] GLUCOSE [facility] GLUCOMTR [facility] 131mg/dL Normal [id number] 70 - 199 [facility] GLUCOSE [facility] GLUCOMTR [facility] 163mg/dL Normal [id number] 70 - 199 [facility] GLUCOSE [facility] GLUCOMTR MC[facility] 108mg/dL Normal [id number] 70 - 199 [facility] GLUCOSE [facility] GLUCOMTR [facility]NC 163mg/dL Normal [id number] 70 - 199 [facility] GLUCOSE [facility] GLUCOMTR [facility] 95mg/dL Normal [id number] 70 - 199 [facility] GLUCOSE [facility] GLUCOMTR [facility] 152mg/dL Normal [id number] 70 - 199 [facility] GLUCOSE [facility] GLUCOMTR [facility] 97mg/dL Normal [id number] 70 - 199 [facility] GLUCOSE [facility] GLUCOMTR [facility] 117mg/dL Normal [id number] 70 - 199 [facility] GLUCOSE [facility] GLUCOMTR [facility] 162mg/dL Normal [id number] 70 - 199 [facility] GLUCOSE [facility] GLUCOMTR [facility] 113mg/dL Normal [id number] 70 - 199 [facility] GLUCOSE [facility] GLUCOMTR [facility]NC 121mg/dL Normal [id number] 70 - 199 [facility] GLUCOSE [facility]DC GLUCOMTR [facility]NC 144mg/dL Normal [id number] 70 - 199 [facility] GLUCOSE BLDC GLUCOMTR MCNC 165mg/dL Normal [id number] 70 - 199 [facility] [facility] 172mg/dL Normal [id number] 70 - 199 [facility] 98mg/dL Normal [id number] 70 - 199 [facility] 168mg/dL Normal [id number] 70 - 199 [facility] 157mg/dL Normal [id number] 70 - 199 [facility] 153mg/dL Normal [id number] 70 - 199 [facility] 76mg/dL Normal [id number] 70 - 199 [facility] 119mg/dL Normal [id number] 70 - 199 [facility] 166mg/dL Normal [id number] 70 - 199 [facility] 152mg/dL Normal [id number] 70 - 199 [facility] 136mg/dL Normal [id number] 70 - 199 [facility] 187mg/dL Normal [id number] 70 - 199 [facility] 180mg/dL Normal [id number] 70 - 199 [facility] 159mg/dL Normal [id number] 70 - 199 [facility] 84mg/dL Normal [id number] 70 - 199 [facility] 168mg/dL Normal [id number] 70 - 199 [facility] 112mg/dL Normal [id number] 70 - 199 [facility] 165mg/dL Normal [id number] 70 - 199 [facility] 101mg/dL Normal [id number] 70 - 199 [facility] 118mg/dL Normal [id number] 70 - 199 [facility] Nitrite Ur Ql Strip.auto NEGATIVE Normal [id number] - [facility] Glucose Ur Ql Strip.auto NEGATIVE Normal [id number] - [facility] Hgb Ur Ql Strip.auto NEGATIVE Normal [id number] - [facility] pH Ur Strip.auto 6 Normal [id number] 4.5 - 8 [facility] Ketones Ur Ql Strip.auto NEGATIVE Normal [id number] - [facility] Sp Gr Ur Strip.auto 1.02 Normal [id number] 1.0 05 - 1.03 [facility] Color Ur Auto YELLOW Normal [id number] [facility] Clarity Ur Refract.auto CLEAR Normal [id number] [facility] Prot Ur Ql Strip.auto NEGATIVE Normal [id number] - [facility] SPECIMEN SOURCE XXX URINE CLEAN CATCH Normal [id number] [facility] Bacteria Ur Ql Auto PRESENT Abnormal - [facility] SQUAMOUS NO./AREA URNS LPF 1/LPF Normal [id number] 0 - 5 [facility] WBC number/area UrnS Auto 3/HPF Normal [id number] 0 - 5 [facility] RBC number/area UrnS Auto 1/HPF Normal 0 - 3 [facility] 164mg/dL Normal [id number] 70 - 199 [facility] 208mg/dL Above high normal [id number] 70 - 199 [facility] 134mg/dL Normal [id number] 70 - 199 [facility] 144mg/dL Normal [id number] 70 - 199 [facility] 147mg/dL Normal [id number] 70 - 199 [facility] 149mg/dL Normal [id number] 70 - 199 [facility] 83mg/dL Normal [id number] 70 - 199 [facility] 138mg/dL Normal [id number] 70 - 199 [facility] 132mg/dL Normal [id number] 70 - 199 [facility] 129mg/dL Normal [id number] 70 - 199 [facility] 86mg/dL Normal [id number] 70 - 199 [facility] 163mg/dL Normal [id number] 70 - 199 [facility] 154mg/dL Normal [id number] 70 - 199 [facility] 139mg/dL Normal [id number] 70 - 199 [facility] 90mg/dL Normal [id number] 70 - 199 [facility] 155mg/dL Normal [id number] 70 - 199 [facility] 250mg/dL Above high normal [id number] 70 - 199 [facility] 135mg/dL Normal [id number] 70 - 199 [facility] 71mg/dL Normal [id number] 70 - 199 [facility] 120mg/dL Normal [id number] 70 - 199 [facility] 100mg/dL Normal [id number] 70 - 199 [facility] 145mg/dL Normal [id number] 70 - 199 [facility] 113mg/dL Normal [id number] 70 - 199 [facility] 117mg/dL Normal [id number] 70 - 199 [facility] 147mg/dL Normal [id number] 70 - 199 [facility] 147mg/dL Normal [id number] 70 - 199 [facility] 120mg/dL Normal [id number] 70 - 199 [facility] 180mg/dL Normal [id number] 70 - 199 [facility] 223mg/dL Above high normal [id number] 70 - 199 [facility] 108mg/dL Normal [id number] 70 - 199 [facility] 109mg/dL Normal [id number] 70 - 199 [facility] 171mg/dL Normal [id number] 70 - 199 [facility] 204mg/dL Above high normal [id number] 70 - 199 [facility] 213mg/dL Above high normal [id number] 70 - 199 [facility] 197mg/dL Normal [id number] 70 - 199 [facility] 168mg/dL Normal [id number] 70 - 199 [facility] 267mg/dL Above high normal [id number] 70 - 199 [facility] 246mg/dL Above high normal [id number] 70 - 199 [facility] 104mg/dL Normal [id number] 70 - 199 [facility] 183mg/dL Normal [id number] 70 - 199 [facility] 192mg/dL Normal [id number] 70 - 199 [facility] 323mg/dL Above high normal [id number] 70 - 199 [facility] 166mg/dL Normal [id number] 70 - 199 [facility] 250mg/dL Above high normal [id number] 70 - 199 [facility] 190mg/dL Normal [id number] 70 - 199 [facility] 240mg/dL Above high normal [id number] 70 - 199 [facility] 128mg/dL Normal [id number] 70 - 199 [facility] 194mg/dL Normal [id number] 70 - 199 [facility] 250mg/dL Above high normal [id number] 70 - 199 [facility] 157mg/dL Normal [id number] 70 - 199 [facility] 296mg/dL Above high normal [id number] 70 - 199 [facility] 290mg/dL Above high normal [id number] 70 - 199 [facility] 293mg/dL Above high normal [id number] 70 - 199 [facility] 120mg/dL Normal [id number] 70 - 199 [facility] 275mg/dL Above high normal [id number] 70 - 199 [facility] 223mg/dL Above high normal [id number] 70 - 199 [facility] 314mg/dL Above high normal [id number] 70 - 199 [facility] 185mg/dL Normal [id number] 70 - 199 [facility] VALPROATE SERPL-[facility]NC 61.3mcg/mL Normal [id number] 50 - 100 [facility] 299mg/dL Above high normal [id number] 70 - 199 [facility] 261mg/dL Above high normal [id number] 70 - 199 [facility] 298mg/dL Above high normal [id number] 70 - 199 [facility] 227mg/dL Above high normal [id number] 70 - 199 [facility] 288mg/dL Above high normal [id number] 70 - 199 [facility] 292mg/dL Above high normal [id number] 70 - 199 [facility] 343mg/dL Above high normal [id number] 70 - 199 [facility] 226mg/dL Above high normal [id number] 70 - 199 [facility] 293mg/dL Above high normal [id number] 70 - 199 [facility] 278mg/dL Above high normal [id number] 70 - 199 [facility] 320mg/dL Above high normal [id number] 70 - 199 [facility] 171mg/dL Normal [id number] 70 - 199 [facility] 208mg/dL Above high normal [id number] 70 - 199 [facility] 245mg/dL Above high normal [id number] 70 - 199 [facility] 254mg/dL Above high normal [id number] 70 - 199 [facility] 216mg/dL Above high normal [id number] 70 - 199 [facility] 315mg/dL Above high normal [id number] 70 - 199 [facility] 280mg/dL Above high normal [id number] 70 - 199 [facility] 299mg/dL Above high normal [id number] 70 - 199 [facility] 164mg/dL Normal [id number] 70 - 199 [facility] 231mg/dL Above high normal [id number] 70 - 199 [facility] 253mg/dL Above high normal [id number] 70 - 199 [facility] 258mg/dL Above high normal [id number] 70 - 199 [facility] 181mg/dL Normal [id number] 70 - 199 [facility] 233mg/dL Above high normal [id number] 70 - 199 [facility] 230mg/dL Above high normal [id number] 70 - 199 [facility] 343mg/dL Above high normal [id number] 70 - 199 [facility] 226mg/dL Above high normal [id number] 70 - 199 [facility] 262mg/dL Above high normal [id number] 70 - 199 [facility] 241mg/dL Above high normal [id number] 70 - 199 [facility] 322mg/dL Above high normal [id number] 70 - 199 [facility] 227mg/dL Above high normal [id number] 70 - 199 [facility] 270mg/dL Above high normal [id number] 70 - 199 [facility] 274mg/dL Above high normal [id number] 70 - 199 [facility] 312mg/dL Above high normal [id number] 70 - 199 [facility] 204mg/dL Above high normal [id number] 70 - 199 [facility] 321mg/dL Above high normal [id number] 70 - 199 [facility] 277mg/dL Above high normal [id number] 70 - 199 [facility] 235mg/dL Above high normal [id number] 70 - 199 [facility] 200mg/dL Above high normal [id number] 70 - 199 [facility] VALPROATE SERPL-MCNC 54.7mcg/mL Normal [id number] 50 - 100 [facility]COMTR [facility] 265mg/dL Above high normal [id number] 70 - 199 [facility] 275mg/dL Above high normal [id number] 70 - 199 [facility] 248mg/dL Above high normal [id number] 70 - 199 [facility] 191mg/dL Normal [id number] 70 - 199 [facility] 173mg/dL Normal [id number] 70 - 199 [facility] 206mg/dL Above high normal [id number] 70 - 199 [facility] 265mg/dL Above high normal [id number] 70 - 199 [facility] 208mg/dL Above high normal [id number] 70 - 199 [facility] 277mg/dL Above high normal [id number] 70 - 199 [facility] 245mg/dL Above high normal [id number] 70 - 199 [facility] GL[facility] 277mg/dL Above high normal [id number] 70 - 199 [facility] 191mg/dL Normal [id number] 70 - 199 [facility] 201mg/dL Above high normal [id number] 70 - 199 [facility] 164mg/dL Normal [id number] 70 - 199 [facility] 225mg/dL Above high normal [id number] 70 - 199 [facility] 201mg/dL Above high normal [id number] 70 - 199 [facility] 246mg/dL Above high normal [id number] 70 - 199 [facility] 231mg/dL Above high normal [id number] 70 - 199 [facility] 181mg/dL Normal [id number] 70 - 199 [facility] 147mg/dL Normal [id number] 70 - 199 [facility] 239mg/dL Above high normal [id number] 70 - 199 [facility] 145mg/dL Normal [id number] 70 - 199 [facility] 204mg/dL Above high normal [id number] 70 - 199 [facility] 167mg/dL Normal [id number] 70 - 199 [facility] 199mg/dL Normal [id number] 70 - 199 [facility] 279mg/dL Above high normal [id number] 70 - 199 [facility] 322mg/dL Above high normal [id number] 70 - 199 [facility] 166mg/dL Normal [id number] 70 - 199 [facility] 324mg/dL Above high normal [id number] - 199 [facility] 222mg/dL Above high normal [id number] - 199 [facility] 265mg/dL Above high normal [id number] - [facility] History of Medication Use Medication Directions Dispensed Refills Start Date End Date Stat cephalexin (KEFLEX) 500 mg capsule Take 1 capsule (500 mg total) by mouth 3 (three) times a day for 7 days. 04/07/2024 active cefTRIAXone (ROCEPHIN) 1 g in sterile water 10 mL IV syringe 1 g, intravenous, at 200 mL/hr, Administer over 3 Minutes, Once, On Tue04/06/24 at 1452, For 1 dose, Do not administer simultaneously with any calcium containing solutions via a Y-site in any patient., Indication: Urinary Tract/Genitourinary 04/06/2024 04/06/19 completed sodium chloride 0.9 % bolus 1,000 mL 1,000 mL, intravenous, at 1,000 mL/hr, Administer over 1 Hours, Once, On Tue04/06/24 at 1137, For 1 dose 04/06/2024 04/06/19 completed Tolterodine Tartrate 4mg Extended-Release Capsule 11/30/2023 active sulfamethoxazole-tri methoprim (BACTRIM DS) 800-160 MG per tablet Take 1 tablet (160 mg of trimethoprim total) by mouth every 12 (twelve) hours for 2 days. 11/12/2023 11/15/19 active insulin Lispro (HumaLOG) injection 3 Units 3 Units, Subcutaneous, 3 times daily before meals, First dose on 11/12/23 at 0730Hold if patient is n.p.o. or if blood sugar is less than 140.?? 11/12/2023 11/12/19 aborted Insulin Lispro, 1 Unit Dial, (HumaLOG KWIKPEN) 100 UNIT/ML SOPN Inject 5 Units under the skin 3 (three) times a day with meals. 11/12/2023 11/12/19 aborted Lantus SoloStar 100 UNIT/ML injection Inject 25 Units under the skin every night at bedtime. 11/12/2023 active perphenazine (TRILAFON) tablet 16 mg 16 mg, Oral, Every Night at Bedtime, First dose on Tue11/11/23 at 2200 11/12/2023 active perphenazine (TRILAFON) tablet 8 mg 8 mg, Oral, Daily, First dose on Tue11/12/23 at 0900 11/12/2023 active sertraline (ZOLOFT) tablet 150 mg 150 mg, Oral, Daily, First dose on Tue11/12/23 at 0900 11/12/2023 active insulin regular 100 UNIT/ML injection Starting on Tue11/11/23 at 1312, For 1 doseGARRISON, JONATHAN: mary kateinerafy override 11/11/2023 11/11/19 completed acetaminophen (TYLENOL) tablet 650 mg 650 mg, Oral, Every 6 hours PRN, mild pain (1-3), Starting on Tue11/11/23 at 1447 11/11/2023 active bisacodyl (DULCOLAX) EC tablet 5 mg 5 mg, Oral, Daily as needed, constipation, Starting on Tue11/11/23 at 1447 11/11/2023 active enoxaparin (LOVENOX) syringe 40 mg 40 mg, Subcutaneous, Every 24 hours, First dose on Tue11/11/23 at 1500Enoxaparin NOT recommended if CrCl<30??Administer in abdomen (at least 2 inches from navel) 11/11/2023 active insulin Lispro (HumaLOG) injection 2-12 Units 2-12 Units, Subcutaneous, 3 times daily before meals, First dose on Tue11/11/23 at 1630MEDIUM CORRECTIONAL DOSE?u al starting dose or ??insulin TDD 43-84 units?Bl ood Glucose ?Dose in Units??--- 11/11/2023 active sodium chloride 0.9 % with KCl 40 mEq/L infusion 100 mL/hr, Intravenous, Continuous, Starting on Tue11/11/23 at 1315 11/11/2023 active Cholecalciferol (Vitamin D) 25 MCG (1000 UT) TABS Take 50 mcg by mouth daily. 04/14/2023 active BD AutoShield Duo 30G X 5 MM MISC USE DIRECTED WITH INSULIN 5 TIMES A DAY NEEDED. 04/03/2023 11/12/19 aborted Insulin Lispro, 1 Unit Dial, (HumaLOG KWIKPEN) 100 UNIT/ML SOPN Inject 3 Units under the skin 3 (three) times a day with meals. 03/01/2023 11/12/19 aborted Lantus SoloStar 100 UNIT/ML injection Inject 18 Units under the skin every night at bedtime. 03/01/2023 11/12/19 aborted divalproex (DEPAKOTE) DR tablet 500 mg 500 mg, Oral, 3 times daily, First dose on Tue11/11/23 at 1600Swallow whole; do not crush or chew.??Reproductive /Breast Feeding Risk: Use appropriate precautions for handling and disposal. 02/12/2023 active levothyroxine (SYNTHROID) tablet 50 mcg 50 mcg, Oral, Every Morning on an empty stomach (Daily), First dose on 11/12/23 at 0600 02/12/2023 active metoprolol succinate (TOPROL-XL) 24 hr tablet 25 mg 25 mg, Oral, Daily, First dose on 11/12/23 at 0900Hold for heart rate less than 60 or for systolic blood pressure less than 100??Insert??Do not crush tablet. 02/12/2023 active pantoprazole (PROTONIX) 40 MG EC tablet 40 mg 40 mg, Oral, Daily, First dose on 11/12/23 at 0900Please select an indication: GERDIs this a home medication or a new start? Home Medication 02/12/2023 active sertraline (ZOLOFT) 50 MG tablet Take 3 tablets (150 mg total) by mouth daily. 02/12/2023 active Urea 39% topical cream 07/01/2020 active H-vdmnyxqbxxub-t8-b1 2 3-35-2MG Tablet 07/24/2014 active calcium carbonate-vitamin D (Calcium 600+D) 600 mg-400 unit tablet Take 1 tablet by mouth daily. 10/08/19 active insulin glargine (LANtus SOLOSTAR) 100 units/mL prefilled pen injection Inject 12 Units under the skin 2 (two) times a day. 10/08/19 aborted insulin glargine (LANtus) 100 units/mL injection Inject 12 Units under the skin twice daily (every 12 hours). 10/08/19 aborted LORazepam (ATIVAN) 1 MG tablet Take 1 mg by mouth 3 times daily (every 8 hours) as needed for anxiety. 10/08/19 active pregabalin (LYRICA) 225 MG capsule Take 225 mg by mouth 2 (two) times a day. 10/08/19 active simvastatin (ZOCOR) 20 MG tablet Take 20 mg by mouth nightly. 10/08/19 active atenolol-chlorthalid one (TENORETIC) 50-25 MG per tablet Take 1 tablet by mouth daily. active metFORMIN (GLUCOPHAGE) 1000 MG tablet Take 1,000 mg by mouth 2 (two) times a day with meals. active PANTOprazole (PROTONIX) 40 MG EC tablet Take 40 mg by mouth daily. active saxagliptin (ONGLYZA) 5 MG tablet Take 5 mg by mouth daily. active thiamine (VITAMIN B-1) 100 MG tablet Take 100 mg by mouth daily. active Problems Problem Status Onset Date Problem Type Date of Resolution Source Obesity, unspecified active 2018-04-25 ProblemAct [facility] Exostosis active 2014-05-01 ProblemAct [facility] Edema active 2014-02-26 ProblemAct [facility] Contusion of toe active 2014-08-13 ProblemAct [facility] DIABETES NEUROLOGICAL MANIF active 2013-08-08 ProblemAct [facility] Allergic contact dermatitis due to cosmetics active 2016-11-30 ProblemAct [facility] FOREIGN BODY NON-INFECTED - FOOT/TOE active 2011-01-06 ProblemAct [facility] PLANTAR FASCIITIS active 2011-09-01 ProblemAct [facility] Insulin use active 2024-06-13 EncounterDiagnosisAct [facility] Degenerative joint disease of ankle AND/OR foot active 2014-05-01 ProblemAct [facility] BLISTER FOOT/TOE active 2012-08-01 ProblemAct [facility] Tinea pedis active 2014-02-26 ProblemAct E[facility]_PO DCRCT Enthesopathy of ankle AND/OR tarsus active 2014-07-24 ProblemAct [facility] Type 2 diabetes mellitus with diabetic polyneuropathy active 2024-06-13 EncounterDiagnosisAct [facility] Neurologic disorder associated with type II diabetes mellitus active 2015-03-05 ProblemAct E[facility]_POD CRCT UTI (urinary tract infection), uncomplicated active EncounterDiagnosisAct [facility] Schizoaffective disorder, unspecified active 2022-12-06 ProblemAct [facility] Morbid obesity active 2015-11-17 ProblemAct [facility] Hypertensive disorder active 2020-04[facility]08 [facility] 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, with behavioral disturbance active 2022-10-25 [facility] Diarrhea active 2023-03-10 [facility] Hyperglycemia active 2023-11-11 ProblemAct [facility] Bacteriuria active [facility] Hypomagnesemia active 2023-11-11 ProblemAct [facility] Abnormal cardiovascular stress test active 2018-04-24 [facility] Postmenopausal bleeding active 2017-12-26 [facility] Acute cystitis without hematuria active 2023-11-11 [facility] First degree AV block active 2015-11-17 [facility] Gastroesophageal reflux disease active 2020-04-08 [facility] Abnormal EKG active 2015-11-17 [facility] Vitamin D deficiency active 2023-04-14 [facility] Hypothyroidism active 2020-04-08 ProblemAct [facility] Type 2 diabetes mellitus with diabetic polyneuropathy, without long-term current use of insulin active 2015-11-17 ProblemAct [facility] Severe cognitive impairment active 2022-12-15 ProblemAct [facility] Bipolar disorder with psychotic features active 2022-11-29 ProblemAct [facility] Hyperglycemia due to diabetes mellitus active 2023-11-11 ProblemAct [facility] Stage 3 chronic kidney disease active 2020-04-08 ProblemAct [facility] DNR (do not resuscitate) active 2023-02-24 ProblemAct [facility] Adrenal adenoma active 2020-04-[address] [facility] Urinary incontinence active 2020-04-08 ProblemAct [facility] Postmenopausal HRT (hormone replacement therapy) active 2016-12-29 ProblemAct [facility] Advanced care planning/counseling discussion active 2023[facility]02-[address] [facility] active 2020-04-08 ProblemAct [facility] Pneumonia due to COVID-19 virus active 2020-04-15 ProblemAct [facility] Incontinence of feces with fecal urgency active [facility] Rectal bleeding active EncounterDiagnosisAct [facility] Loose stools active EncounterDiagnosisAct [facility] Left elbow pain active 2017-07-05 ProblemAct [facility] Immunizations Vaccine Date Source Lot Number Status Influenza Quad (Fluarix/Fluz one/FluLaval) 0.5mL (SD-IIV4) 02/03/2023 [facility] [id number] completed Pfizer SARS-CoV-2 COVID-19, mRNA, LNP-S, preservative free 02/19/2021 [facility] [id number] completed Influenza Quad (Fluad) 0.5 mL >65Yrs (AIIV4) 11/23/2020 [facility] [id number] completed Pfizer SARS-CoV-2 COVID-19, mRNA, LNP-S, preservative free 07/31/2020 [facility] [id number] completed Pfizer SARS-CoV-2 COVID-19, mRNA, LNP-S, preservative free 07/10/2020 [facility] [id number] completed Encounters Encounter Type Encounter Reason Primary Diagnosis Location Date Emergency Pain while Urinating Urinary tra ct infection, site not specified [facility] 04/06/2024 Inpatient Hyperglycemia, unspecified Hyperglycemia, unspecified [facility] 11/11/2023 Ambulatory Consult Consult [facility] 10/07/2023 [facility] 04/05/2023 [facility] [address], [facility]. 03/13/2023 Ambulatory TYPE 2 DIABETES MELLITUS W DIABETIC CHRONIC KIDNEY DISEASE TYPE 2 DIABETES MELLITUS W DIABETIC CHRONIC KIDNEY DISEASE [facility] (Becky) 03/03/2023 Ambulatory TYPE 2 DIABETES MELLITUS W DIABETIC CHRONIC KIDNEY DISEASE TYPE 2 DIABETES MELLITUS W DIABETIC CHRONIC KIDNEY DISEASE [facility] (Becky) 03/03/2023 Inpatient Brief psychotic disorder Brief psychotic disorder [facility] 10/24/2022 Ambulatory [facility] 08/09/2021 Care Team Organization Name Specialty Phone Email Start Date End Da te [facility] Health - Becky [facility]A 07/16/2024 07/18/2024 [facility] 06/27/2024 [facility] NEDYA PATEL, Primary Care 04/25/2024 [facility] NEYDA SHAH, Primary Care 04/06/2024 [facility] Primary Care [facility] [employer] 04/19/2023 07/17/2023 [facility], [facility] Primary Care 03/18/2023 [facility] 03/14/2023 12/12/2023 [facility] 03/13/2023 10/01/2023 [facility] 03/06/2023 New Subscriber Name 03/06/2023 New Subscriber Name SAVAGE SEVERIANO Primary Care [facility] 10/31/2022 [facility] Primary Care 10/2410/24/2022 [facility] Health - [place] CCDA 09/24/2022 07/14/2024 [facility] Health - Becky ADT 09/24/2022 [facility] 07/19/2022 [facility] Neyda Patel Primary Care 08/09/2021 [facility] NEYDA PATEL Primary Care [facility] NEYDA PATEL, Primary Care
== END 2024-07-25 15:19 | disposition home or self-care (01) ==
LOC: HO.HKAE 14:58
PROVIDERS: PCP Internal Medicine; Visit Provider Internal Medicine Hypertension Specialist
DX: I12.9 Hypertensive chronic kidney disease with stage 1 through stage 4 chronic kidney disease, or unspecified chronic kidney disease (principal); N18.9 Chronic kidney disease, unspecified; E66.9 Obesity, unspecified
CPT/HCPCS: 99204

== ENCOUNTER → 2024-07-25 14:58 | Outpatient (BNVA) | payer OTHER, SELFPAY | PROVIDERS: PCP Internal Medicine; Visit Provider Internal Medicine Hypertension Specialist ==

== ENCOUNTER 2024-11-21 13:43 | Outpatient (AMB) | payer OTHER, SELFPAY ==
--- NOTE | 2024-11-21 13:43 | HO.NEPHOV_ITS ---
Vital Signs 11/21/24 13:46 BP 112/80 Blood Pressure Location Lt radial Position Sitting Pulse 114 H Pulse Source Pulse Oximeter Pulse Oximetry (%) 95 Oxygen Delivery Method Room Air Intake Visit Reasons: CKD-Confirmed [employer] Shop Supervisor Required: No Accompanied by: Self / Same As Patient Allergies No Known Allergies Allergy (Verified 11/21/24 13:45) PFSH Medical History (Updated 08/28/24 @ 10:49 by Kimberly Cat, DNP, BECK TENDER-BC) 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 with behavioral disturbance Acute kidney injury Morbid (severe) obesity due to excess calories Dyspnea on exertion Bipolar 1 disorder, mixed Anxiety Depression, unspecified Hyperlipidemia Type 2 diabetes mellitus without complications Hypertension Hypothyroidism Bipolar disorder Social History Household Members: None Housing: Condominium Do you presently have visiting nurse or other home services: No Unable to assess alcohol history related to: Unknown Patient Tobacco Use Status: Former Tobacco user e-Cigarette/Vaping Use: Never Used service: No Sexual orientation: Straight/Heterosexual Coding
[2024-11-21 13:46] VITALS: BP 112/80; PULSE 114; O2SAT 95
--- NOTE | 2024-11-21 13:50 | HO.NEPHOV_ITS ---
Vital Signs 11/21/24 13:46 BP 112/80 Blood Pressure Location Lt radial Position Sitting Pulse 114 H Pulse Source Pulse Oximeter Pulse Oximetry (%) 95 Oxygen Delivery Method Room Air Intake Visit Reasons: CKD-Confirmed Allergies No Known Allergies Allergy (Verified 11/21/24 13:45) Medication List - Last Reconciled 11/21/24 by Charles Sigala MD atenolol 50 mg PO DAILY atorvastatin 20 mg PO DAILY cholecalciferol (vitamin D3) 25 mcg PO DAILY divalproex 500 mg PO 1700,2100 30 days insulin glargine (Lantus Solostar U-100 Insulin) units subcut insulin lispro subcut BID levothyroxine 50 mcg PO DAILY melatonin 3 mg PO BEDTIME PRN 30 days metformin 1,000 mg PO BID metoprolol succinate ER 25 mg PO DAILY olanzapine 10 mg PO BEDTIME 30 days pantoprazole 40 mg PO DAILY perphenazine 16 mg PO BID PRN saxagliptin (Onglyza) 5 mg PO DAILY sertraline 50 mg PO DAILY tolterodine ER 4 mg PO DAILY HPI Comments Details: 73-year-old female presenting with chronic kidney disease. She was monitored by Dr. Bernal, who identified her kidney function at 30%. This decline is new, as she had no prior history of kidney issues. The patient?s diabetic history stretches back to her 40s, now for nearly 30 years, with complications including diabetic neuropathy. She reports chronic diarrhea over the last year, only partially relieved by Metamucil. Her dietary habits avoid high salt intake, which could influence her cardiac and renal health. She does not have a history of urinary issues or heart problems, and no recent difficulties with breathing or edema were noted. 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 Acute kidney injury Morbid (severe) obesity due to excess calories Dyspnea on exertion Bipolar 1 disorder, mixed Anxiety Depression, unspecified Hyperlipidemia Type 2 diabetes mellitus without complications Hypertension Hypothyroidism Bipolar disorder Social History Household Members: None Housing: Condominium Do you presently have visiting nurse or other home services: No Unable to assess alcohol history related to: Unknown Patient Tobacco Use Status: Former Tobacco user e-Cigarette/Vaping Use: Never Used service: No Sexual orientation: Straight/Heterosexual Physical Exam Vital Signs: Last Vital Signs Pulse 114 H 11/21/24 13:46 BP 112/80 11/21/24 13:46 Pulse Ox 95 11/21/24 13:46 Oxygen Delivery Method Room Air 11/21/24 13:46 Comfortable Neck supple no JVD. Lungs entry equal no rales. Heart S1-S2 heard no gallop or rub. Abdomen soft nontender. Neuro alert awake oriented. No asterixis. Extremities no edema. Results Reviewed Results Reviewed: August 2024 Cr 1.63 USG- Medical renal disease NO obstruction Nephrology Results: Hgb, (12.0-16.0) 14.1 g/dl 05/10/22 WBC, (4.8-10.8) 7.7 X10*3/uL 05/10/22 Plt Count, (160-400) 187 X10*3/uL 05/10/22 Sodium, (135-145) 140 mmol/L 05/10/22 Potassium, (3.3-5.1) 4.4 mmol/L 05/10/22 Chloride, (96-108) 102 mmol/L 05/10/22 Carbon Dioxide, (22-29) 27 mmol/L 05/10/22 BUN, (9-16) 34 mg/dL H 05/10/22 Creatinine, (0.5-1.4) 1.76 mg/dL H 05/10/22 Calcium, (8.4-10.2) 9.8 mg/dL 05/10/22 Assessment & Plan Assessment & Plan (1) CKD (chronic kidney disease): Code(s): N18.9 - Chronic kidney disease, unspecified Category: Medical (2) Obesity: Code(s): E66.9 - Obesity, unspecified Category: Medical (3) Hypertension: Code(s): I10 - Essential (primary) hypertension Category: Medical Plan Chronic kidney disease most likely due to underlying diabetic kidney disease. Nondiabetic causes seem unlikely No Obstructive uropathy based on USG; Evidence of medical renal disease eGFR around 30-35 ml/mt Stable and lcose to baseline Minimal proteinruia of 0.28 by urien Pro:cr BP well controlled Maintain blood pressure less than 130/80 Continue to avoid nephrotoxic agents including NSAIDs. Maintain A1c less than 7%. Discussed weight loss. Encouraged her to stay on low-sodium diet and increase p.o. fluid intake. Orders: Orders Basic Metabolic Panel 4 Months N18.9 - Chronic kidney disease, unspecified Complete Blood Count Auto Diff 4 Months N18.9 - Chronic kidney disease, unspecified Coding Level of Care Code Est Pt Level 4 (35837) Diagnoses CKD (chronic kidney disease) N18.9 Obesity E66.9 Hypertension I10
== END 2024-11-21 13:55 | disposition home or self-care (01) ==
LOC: HO.HKAE 13:44
PROVIDERS: PCP Internal Medicine; Visit Provider Internal Medicine Hypertension Specialist
DX: I12.9 Hypertensive chronic kidney disease with stage 1 through stage 4 chronic kidney disease, or unspecified chronic kidney disease (principal); N18.9 Chronic kidney disease, unspecified; E66.9 Obesity, unspecified
CPT/HCPCS: 99214